=== PATIENT | male | born 1975 | race Caucasian/White ===

== ENCOUNTER 2020-04-25 14:49 | Inpatient (IN) | payer OTHER, SELFPAY ==
[~2020-04-25 14:49] MED LIST: Iopamidol 370 76% 100 ML VIAL ONE; Iopamidol-370 76% 500 ML 1 ML ONE
[2020-04-25] MEDS ORDERED: Fentanyl 100 MCG/2 ML VIAL ONE ×2 (15:15→15:24)
[2020-04-25] MEDS ORDERED: fentaNYL Citrate/PF 2,000 MCG in Sodium Chloride 0.9% 60 ML IV SCH ×2 (15:15→20:00)
--- NOTE | 2020-04-25 15:20 | RAD ---
XR Chest 1 View Portable HISTORY: Respiratory failure COMPARISON: None FINDINGS: The heart size is normal. There is an endotracheal tube with tip about 3 cm above the level of the c adriane. A nasogastric tube can be traced into the stomach with tip excluded from the film. The lungs are well expanded without focal areas of consolidation, pneumothorax or pleural effusions.
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
[2020-04-25 15:24] LABS: #Basophils 0.2 thou/uL (0.0-0.2); #Eosinphils 0.1 thou/uL (0.0-0.7); #Lymphocytes 4.4 thou/uL (1.20-3.40); #Monocytes 0.7 thou/uL (0.11-0.59); #Neutrophils 9.9 thou/uL (1.40-6.50); %Eosinophils 0.6 % (0.0-10.0); %Lymphocytes 28.7 % (21.0-51.0); %Monocytes 4.6 % (0.0-10.0); Hemoglobin 17.4 g/dL (14.0-18.0); Mean Corpuscular HGB CONC 34.1 g/dL (32.0-36.0); Mean Corpuscular Hemoglobin 31.8 pg (27.0-31.0); Mean Corpuscular Volume 93.3 fL (78.0-98.0); Mean Platelet Volume 7.8 fL (7.4-10.4); Platelet Count 357 thou/uL (130-400); RBC Distribution Width 11.8 % (11.5-14.5); Red Blood Cell (RBC) Count 5.48 mill/uL (4.70-6.10); White Blood Cell (WBC) Count 15.2 thou/uL (4.8-10.8)
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
[2020-04-25 15:42] LABS: PTT 26.1 sec (22.9-36.1); Prothrombin Time 12.9 sec (12.0-14.7)
[2020-04-25 15:42] LABS: Analyzer IN Cardio ER; Base Excess (BEa) -6.3 mEq/L (-2.0 to +3.0); CO2 Tension 47.7 mmHg (35.0-45.0); Calcium, Ionized (arterial) 1.16 mmol/L (1.12-1.30); Carboxyhemoglobin (COHb) 2.3 gm% (0.0-3.0); Hemoglobin (Hb) 16.6 g/dL (14.0-18.0); O2 Tension (PaO2), arterial 135.8 mmHg (80.0-100.0); Potassium - ABG Lab 2.81 mmol/L (3.70-5.30); pH, Arterial 7.26 (7.35-7.45)
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
[2020-04-25] MEDS ORDERED: Midazolam HCl 5 mg/ml Vial ONE ×2 (15:51→16:16)
[2020-04-25 15:52] LABS: ALV-art Gradient 232.375 mmHg (0-20); Puncture Site RRA
[2020-04-25 15:52] LABS: ALT (SGPT) 161 U/L (8-55); AST (SGOT) 96 U/L (5-34); Alkaline Phosphatase 76 U/L (40-110); Anion Gap 22 mmol/L (10-20); BUN (Urea Nitrogen) 8 mg/dL (8.9-20.6); Bilirubin, Total 0.6 mg/dL (0.2-1.2); Calc. Creatinine Clearance 0 mL/min (70-130); Calcium 8.9 mg/dL (7.8-10.44); Carbon Dioxide 18 mmol/L (22-29); Chloride 101 mmol/L (98-107); Globulin 2.8 g/dL (2.4-3.5); Glucose 210 mg/dL (70-105); Lipase 35 U/L (8-78); Protein, Total 6.8 g/dL (6.0-8.3); Sodium 138 mmol/L (136-145)
[2020-04-25 15:53] LABS: Bacteria/HPF None Seen HPF (None Seen); Bilirubin Negative (Negative); Blood, Urine Negative (Negative); Clarity Clear (Clear); Glucose, Urine (Dipstick) 70 mg/dL (Negative); Ketone, Urine Negative (Negative); Leukocyte Negative Leu/uL (Negative); Nitrite Negative (Negative); Protein, Urine (Dipstick) 200 mg/dL (Neg-Trace); Specific Gravity, Urine 1.015 (1.002-1.036); Squamous Epithelial None Seen HPF (0-3); Urobilinogen Normal mg/dL (Less than 2); pH, Urine 6.5 (5.0-9.0)
[2020-04-25 15:57] LABS: Sperm/HPF 2+ HPF (None Seen)
[2020-04-25 16:03] LABS: Potassium 2.7 mmol/L (3.5-5.1)
[2020-04-25] MEDS ORDERED: Potassium Chloride 20 MEQ/100 ML PREMIX BAG ONE ×2 (16:08→17:23)
[2020-04-25 16:12] LABS: Amphetamine Not Detected (NotDetected); Barbiturates Screen Not Detected (NotDetected); Benzodiazepine Screen Not Detected (NotDetected); Cocaine Metabolite Screen Not Detected (NotDetected); Medtox Control Line Valid? VALID (VALID); Medtox Reader # READER 4; Methadone Not Detected (NotDetected); Methamphetamine Not Detected (NotDetected); Opiate Screen Not Detected (NotDetected); Oxycodone Screen Not Detected (NotDetected); Phencyclidine (PCP) Not Detected (NotDetected); THC/Cannabinoid Screen Not Detected (NotDetected); Tricyclic Screen Not Detected (NotDetected)
[2020-04-25 16:12] LABS: CKMB 2.5 ng/mL (0-6.6)
[2020-04-25 16:20] LABS: Acetaminophen Less than 6.0 mcg/mL (10.0-30.0); Alcohol Less than 10 mg/dL (Less than 10); Salicylate Less than 8.0 mg/dL (15.0-30.0)
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
[2020-04-25 16:33] LABS: Lactic Acid 7.6 mmol/L (0.5-2.2)
[2020-04-25] MEDS ORDERED: Pot Chloride/Pot Bicarb/Cit Ac 25 mEq Effervescent Tablet ONE ×2 (16:33)
[2020-04-25 16:50] LABS: SARS-CoV-2 NAA Rapid Test Not Detected (NotDetected)
[2020-04-25] MEDS ORDERED: Heparin 10,000 UNITS/ 10 ML VIAL ONE (16:50)
[2020-04-25] MEDS ORDERED: Propofol 1,000 MG/100 ML VIAL IV ONE ×2 (16:54→18:50)
[2020-04-25] MEDS ORDERED: DOPamine 400 MG/D5W 250 ML 250 ML ONE (17:32)
[2020-04-25 18:08] VITALS: BMI 32.1
[2020-04-25] MEDS ORDERED: DOPamine 400 MG/D5W 250 ML 250 ML IVPB SCH (19:00)
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
[2020-04-25 19:16] LABS: Actual Bicarbonate (HCO3a) 19.7 mEq/L (22-28); CO2 Tension 43.6 mmHg (35.0-45.0); Calcium, Ionized (arterial) 1.05 mmol/L (1.12-1.30); Carboxyhemoglobin (COHb) 1.1 gm% (0.0-3.0); O2 Tension (PaO2), arterial 77.7 mmHg (80.0-100.0); pH, Arterial 7.27 (7.35-7.45)
[2020-04-25 19:30] LABS: Troponin I 0.524 ng/mL (< 0.028)
[2020-04-25] MEDS ORDERED: Nitroglycerin 0.4 MG TAB (25 Tab Bottle) SL PRN ×2 (19:38→22:30)
[2020-04-25] MEDS ORDERED: Ventilator Sedation Protocol 1 EACH FS SCH (19:45)
[2020-04-25] MEDS ORDERED: Acetaminophen 650 MG Suppository PR PRN (19:58)
[2020-04-25] MEDS ORDERED: PHENTOLAMINE MESYLATE SC SCH (20:00)
[2020-04-25] MEDS ORDERED: PRE FILLED SC SCH (20:00)
[2020-04-25] MEDS ORDERED: DISCONTINUE PREVIOUS NARCOTIC PAIN MEDICATIONS AND BENZODIAZEPINES FS SCH (20:00)
[2020-04-25] MEDS ORDERED: Morphine 2 MG/ML VIAL SLOW IVP PRN (20:00)
[2020-04-25] MEDS ORDERED: Propofol BOLUS 1,000 MG/100 ML VIAL IV PRN (20:00)
[2020-04-25] MEDS ORDERED: Lorazepam 2 MG/ML VIAL SLOW IVP PRN (20:00)
[2020-04-25] MEDS ORDERED: Phentolamine Mesylate 5 MG VIAL SC SCH (20:00)
[2020-04-25] MEDS ORDERED: Fentanyl BOLUS 250 ML IVPB PRN (20:00)
[2020-04-25] MEDS ORDERED: Propofol 1,000 MG/100 ML VIAL IV PRN (20:00)
[2020-04-25 20:05] LABS: Puncture Site LBA
--- NOTE | 2020-04-25 20:20 | PDOC.BPN ---
- Brief Progress Note [id number] dictated
[2020-04-25] MEDS ORDERED: Sodium Chloride 0.9% 500 ML IV SCH (20:40)
[2020-04-25] MEDS ORDERED: Ondansetron PF 4 MG/2 ML Vial IVP PRN (20:40)
[2020-04-25] MEDS: Famotidine/PF 20 mg/2ml Vial SLOW IVP SCH (20:45)
[2020-04-25 20:52] LABS: Anion Gap 16 mmol/L (10-20); BUN (Urea Nitrogen) 8 mg/dL (8.9-20.6); Calc. Creatinine Clearance 146 mL/min (70-130); Calcium 7.1 mg/dL (7.8-10.44); Carbon Dioxide 19 mmol/L (22-29); Chloride 110 mmol/L (98-107); Glucose 128 mg/dL (70-105); Magnesium 1.9 mg/dL (1.6-2.6); Potassium 3.9 mmol/L (3.5-5.1); Sodium 141 mmol/L (136-145)
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
[2020-04-25 20:58] LABS: Troponin I 0.974 ng/mL (< 0.028)
[2020-04-25] MEDS ORDERED: Metoprolol Tartrate 25 MG TAB PO SCH (21:00)
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
[2020-04-25] MEDS: Atorvastatin Calcium 40 MG TAB PO SCH (21:42)
[2020-04-25 23:22] LABS: Hemoglobin 15.5 g/dL (14.0-18.0); Platelet Count 227 thou/uL (130-400)
[2020-04-25] MEDS: Heparin 10,000 UNITS/ 10 ML VIAL SLOW IVP SCH (23:37)
[2020-04-25] MEDS: Heparin 25,000 units/D5W 500 ML IV SCH (23:38)
[2020-04-26 03:48] LABS: ALT (SGPT) 130 U/L (8-55); AST (SGOT) 175 U/L (5-34); Albumin 3.4 g/dL (3.5-5.0); Alkaline Phosphatase 61 U/L (40-110); Anion Gap 15 mmol/L (10-20); BUN (Urea Nitrogen) 6 mg/dL (8.9-20.6); Bilirubin, Total 0.8 mg/dL (0.2-1.2); Calc. Creatinine Clearance 170 mL/min (70-130); Calcium 7.3 mg/dL (7.8-10.44); Carbon Dioxide 17 mmol/L (22-29); Cardiac Risk 3.8 (Less than 4.5); Chloride 108 mmol/L (98-107); Cholesterol 119 mg/dl (< 200 Desired); Globulin 2.3 g/dL (2.4-3.5); Glucose 135 mg/dL (70-105); HDL Cholesterol 31 mg/dL (>60 Neg Risk); LDL Cholesterol, Calculated 77 mg/dL; Potassium 4.1 mmol/L (3.5-5.1); Protein, Total 5.7 g/dL (6.0-8.3); Sodium 136 mmol/L (136-145); Triglycerides 54 mg/dL (Less than 150)
[2020-04-26 03:50] LABS: Band 2 % (5-11); Hemoglobin 15.1 g/dL (14.0-18.0); Lymphocytes 9 % (21-51); MDiff Complete? YES; Mean Corpuscular HGB CONC 34.5 g/dL (32.0-36.0); Mean Corpuscular Hemoglobin 31.9 pg (27.0-31.0); Mean Corpuscular Volume 92.5 fL (78.0-98.0); Mean Platelet Volume 7.6 fL (7.4-10.4); Monocytes 2 % (0-10); Neutrophil 86 % (42-75); Platelet Count 270 thou/uL (130-400); Platelet Morphology Comment Appears Adequate; RBC Distribution Width 11.5 % (11.5-14.5); Reactive Lymphocytes 1 % (0-10); Red Blood Cell (RBC) Count 4.72 mill/uL (4.70-6.10); White Blood Cell (WBC) Count 16.9 thou/uL (4.8-10.8)
[2020-04-26] MEDS: Acetaminophen/Codeine 30-300mg Tablet PO PRN ×4 (04:17→20:54)
[2020-04-26] MEDS: Heparin 10,000 UNITS/ 10 ML VIAL SLOW IVP SCH ×2 (06:25→22:30)
[2020-04-26] MEDS: Aspirin 325 mg Enteric Coated Tablet PO SCH (07:40)
[2020-04-26] MEDS: Famotidine/PF 20 mg/2ml Vial SLOW IVP SCH ×2 (07:40→20:54)
[2020-04-26] MEDS ORDERED: FLU VACC QS2020-21(6MOS UP)/PF 60 MCG/0.5 ML SYRINGE IM ONE (09:00)
[2020-04-26] MEDS ORDERED: Prevnar 13-Val Conj/PF 0.5 ML SYRINGE IM ONE (09:00)
--- NOTE | 2020-04-26 09:12 | PDOC.CPN ---
- Subjective Date: 04/26/20 Time: 09:10 - Review of Systems General: denies: fever/chills, weight/appetite/sleep changes, night sweats, fatigue Respiratory: denies: cough, congestion, shortness of breath, exercise intolerance Cardiovascular: reports: chest pain Gastrointestinal: denies: nausea, vomiting, diarrhea, constipation, abd pain, GI bleeding Musculoskeletal: reports: pain (post CPR) Neurological: denies: numbness, syncope, seizure, weakness - Objective Allergies/Adverse Reactions: Allergies Allergy/AdvReac Type Severity Reaction Status Date / Time shellfish derived Allergy Verified 08/01/19 12:26 Visit Medications: Current Medications Acetaminophen (Acetaminophen 650 Mg Suppository) 650 mg MT Q6H PRN PRN Reason: Fever > 101 or Mild Pain Acetaminophen/Codeine Phosphate (Acetaminophen/Codeine 30-300mg Tablet) 1 tab PO Q4H PRN PRN Reason: Mild Pain (1-3) Last Admin: 04/26/20 04:17 Dose: 1 tab Documented by: Acetaminophen/Codeine Phosphate (Acetaminophen/Codeine 30-300mg Tablet) 2 tab PO Q4H PRN PRN Reason: Moderate Pain (4-6) Last Admin: 04/26/20 07:41 Dose: 2 tab Documented by: Aspirin (Aspirin 325 Mg Enteric Coated Tablet) 325 mg PO DAILY DARVIN Last Admin: 04/26/20 07:40 Dose: 325 mg Documented by: Atorvastatin Calcium (Atorvastatin Calcium 40 Mg Tab) 40 mg PO HS DARVIN Last Admin: 04/25/20 21:42 Dose: Not Given Documented by: Famotidine (Famotidine/Pf 20 Mg/2ml Vial) 20 mg SLOW IVP Q12HR DARVIN Last Admin: 04/26/20 07:40 Dose: 20 mg Documented by: Heparin Sodium (Porcine) (Heparin 10,000 Units/ 10 Ml Vial) 0 units SLOW IVP W ILLCALL DARVIN Last Admin: 04/26/20 06:25 Dose: 3,144 unit Documented by: Dopamine HCl/Dextrose (Dopamine 400 Mg/D5w 250 Ml) 250 mls @ 0 mls/hr IVPB INF DARVIN; Protocol Last Admin: 04/26/20 03:03 Dose: 250 mls Documented by: Dexmedetomidine HCl 400 mcg/ (Sodium Chloride) 100 mls @ 0 mls/hr IVPB INF DARVIN; Protocol Last Admin: 04/26/20 03:43 Dose: 100 mls Documented by: Fentanyl Citrate 2,000 mcg/ (Sodium Chloride) 100 mls @ 0 mls/hr IV INF DARVIN; Protocol Stop: 05/25/20 20:00 Fentanyl Citrate (Fentanyl Bolus) 250 mls @ 0 mls/hr IVPB PRN PRN PRN Reason: Breakthrough pain/agitation Stop: 05/25/20 20:00 Heparin Sodium/Dextrose (Heparin 25,000 Units/D5w) 500 mls @ 0 mls/hr IV INF DARVIN; Protocol Last Admin: 04/25/20 23:38 Dose: 500 mls Documented by: Lorazepam (Lorazepam 2 Mg/Ml Vial) 2 mg SLOW IVP Q1H PRN PRN Reason: Breakthrough agitation Stop: 05/25/20 20:00 Morphine Sulfate (Morphine 2 Mg/Ml Vial) 2 mg SLOW IVP Q1H PRN PRN Reason: Breakthrough Pain/Agitation Stop: 05/25/20 20:00 Nitroglycerin (Nitroglycerin 0.4 Mg Tab (25 Tab Bottle)) 0.4 mg SL Q5MIN PRN PRN Reason: Chest Pain Discontinue Previous Narcotic Pain Medications And Benzodiazepines 1 each FS .ONE DARVIN Stop: 05/25/20 20:00 Ondansetron HCl (Ondansetron Pf 4 Mg/2 Ml Vial) 4 mg IVP Q6H PRN PRN Reason: Nausea/Vomiting Last Admin: 04/26/20 04:17 Dose: 4 mg Documented by: Propofol (Propofol 1,000 Mg/100 Ml Vial) 1,000 mg IV INF PRN; Protocol PRN Reason: TO ACHIEVE GOAL RASS Stop: 05/25/20 20:00 Propofol (Propofol Bolus 1,000 Mg/100 Ml Vial) 20 mg IV Q5MIN PRN PRN Reason: BREAKTHROUGH AGITATION Stop: 05/25/20 20:00 Sodium Chloride (Sodium Chloride 0.9% 250 Ml Bag) 200 ml IVPB ONE PRN PRN Reason: BOLUS IF SBP <90 Stop: 05/05/20 22:31 Sodium Chloride (Flush - Normal Saline 10 Ml Syringe) 10 ml IVF PRN PRN PRN Reason: Saline Flush Sodium Chloride (Flush - Normal Saline 10 Ml Syringe) 10 ml IVF Q12HR DARVIN Vital Signs & Weight: Vital Signs Temp 04/26/20 08:00 98.4 F 04/26/20 04:00 98.3 F 04/26/20 00:00 98.9 F Weight 230 lb - Quality Measures Condition: Myocardial Infarction CV meds: Beta Karla: No (will initiate when BP tolerates), JOY/ARB: No ("), Statin: Yes, ASA: Yes - Physical Exam General: no apparent distress HEENT: mucus membranes moist Neck: supple neck, no bruit Cardiac: regular rate and rhythm, no murmur Lungs: clear to auscultation Neuro: grossly intact Abdomen: active bowel sounds Extremities: no cyanosis, no clubbing, no edema Skin: clear Musculoskeletal: normal range of motion - Labs Result Diagrams: 04/26/20 03:14 04/26/20 03:14 Troponin/CKMB CK-MB (CK-2) 2.5 ng/mL (0-6.6) 04/25/20 14:52 Troponin I 0.974 ng/mL (< 0.028) H* 04/25/20 20:25 - Telemetry Sinus rhythms and dysrhythmias: sinus rhythm - Assessment/Plan Assessment/Plan: 1. s/p posterior STEMI with V-fib. arrest. Diffuse distal disease. Small vessels. Occluded OM 1, Occluded non-dominant RCA proximally after the take off of an RV branch. No intervention possible, vessels too small and diffuse disease. 2. CMY, likely ischemic. EF 25-30%. Check echo in 2-3 days. The decreased EF is out of proportion to the cardiac enzyme elevation. Consult EP. 3. HTN: has been on HCTZ. BP is on low side, still on dopamine.Titrate to off. If not able to titrate then will place central line. 4. Hypokalemia: resolved. 5. Tobacco abuse. Will need counseling. When BP tolerates, start betablockers, entresto or JOY-I. Change to lovenox. Suggest dual anti-platelet therapy, Aspirin and Plavix or Brilinta. If the EF is still decreased by echo then add spiranolactone.
[2020-04-26] MEDS ORDERED: Sodium Chloride 0.9% 500 ML IV SCH (11:00)
--- NOTE | 2020-04-26 11:41 | PRG ---
DATE OF SERVICE: 04/26/2020 SUBJECTIVE: Mr. Oliveira still little unclear of the events occurring yesterday. He is having chest discomfort more internally rather than musculoskeletal. When I have questioned him about chest pain in the days preceding admission, he is fairly vague. He has not had any further arrhythmia. He continues to have moderately low blood pressure and we will see how he is able to tolerate the addition of Coreg and Entresto. He is thirsty and I suspect he is still volume depleted. He is also having some evidence of nicotine withdrawal. PHYSICAL EXAMINATION: VITAL SIGNS: Blood pressure 93/52, heart rate 62, respiratory rate 14, saturation 94%. GENERAL: He is awake, alert, not really in significant distress. He does have occasional complaints of pain with cough, but not with palpation. NECK: He has no JVD. LUNGS: Scattered rhonchi, but no wheezing. HEART: Regular rate and rhythm. I do not hear a murmur nor gallop. ABDOMEN: Soft. There is no organomegaly. EXTREMITIES: He has no edema. LABORATORY DATA: White count 16,900, hemoglobin 15.1, platelet count 270,000. PTT is elevated consistent with ongoing heparin therapy. Electrolytes today include sodium 136, potassium 4.1, chloride 108, CO2 of 17, BUN 6, creatinine 0.8. Liver tests have gone up slightly and today show AST 175 and ALT of 130. IMPRESSION: 1. Status post ventricular fibrillation event with resuscitation. 2. Reduced ejection fraction of approximately 30% in combination with diffuse distal coronary artery disease not amenable to stenting. 3. History of tobacco abuse. PLAN: I am going to start Nicoderm patch. He can probably have his Beltran removed and advancement of diet if okay with Cardiology. I have requested another 500 mL bolus and presume that he is probably a little dehydrated. I am not sure that he is going to be able to tolerate the beta-sam and Entresto as anticipated. He is being converted from IV heparin to Lovenox and ultimately to antiplatelet therapy. The patient is certainly aware of the need for aggressive lifestyle modification and long-term medication followup. Critical care, 30 minutes. Job ID: [id number]
[2020-04-26] MEDS: Nicotine 14 MG PATCH TD SCH (11:53)
[2020-04-26 11:58] LABS: Troponin I 64.223 ng/mL (< 0.028)
[2020-04-26 16:14] LABS: Troponin I 104.795 ng/mL (< 0.028)
[2020-04-26] MEDS: Carvedilol 3.125 MG TAB PO SCH (17:39)
[2020-04-26] MEDS: Atorvastatin Calcium 40 MG TAB PO SCH (20:54)
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
[2020-04-26 22:05] LABS: Troponin I 126.229 ng/mL (< 0.028)
[2020-04-26] MEDS: Heparin 25,000 units/D5W 500 ML IV SCH (22:14)
[2020-04-27] MEDS: Acetaminophen/Codeine 30-300mg Tablet PO PRN ×6 (00:33→20:08)
[2020-04-27 05:29] LABS: ALT (SGPT) 123 U/L (8-55); AST (SGOT) 213 U/L (5-34); Albumin 3.2 g/dL (3.5-5.0); Alkaline Phosphatase 52 U/L (40-110); Anion Gap 13 mmol/L (10-20); BUN (Urea Nitrogen) 4 mg/dL (8.9-20.6); Bilirubin, Total 0.8 mg/dL (0.2-1.2); Calc. Creatinine Clearance 172 mL/min (70-130); Calcium 7.6 mg/dL (7.8-10.44); Carbon Dioxide 25 mmol/L (22-29); Chloride 106 mmol/L (98-107); Globulin 2.1 g/dL (2.4-3.5); Glucose 105 mg/dL (70-105); Potassium 3.1 mmol/L (3.5-5.1); Protein, Total 5.3 g/dL (6.0-8.3); Sodium 141 mmol/L (136-145)
[2020-04-27 05:34] LABS: Band 1 % (5-11); Eosinophils 1 % (0-10); Hemoglobin 13.6 g/dL (14.0-18.0); Lymphocytes 7 % (21-51); MDiff Complete? YES; Mean Corpuscular HGB CONC 34.2 g/dL (32.0-36.0); Mean Corpuscular Hemoglobin 32.1 pg (27.0-31.0); Mean Corpuscular Volume 93.8 fL (78.0-98.0); Mean Platelet Volume 8.1 fL (7.4-10.4); Monocytes 10 % (0-10); Neutrophil 81 % (42-75); Platelet Count 161 thou/uL (130-400); Platelet Morphology Comment Appears Adequate; RBC Distribution Width 11.6 % (11.5-14.5); RBC Morphology Normal; Red Blood Cell (RBC) Count 4.25 mill/uL (4.70-6.10); White Blood Cell (WBC) Count 14.1 thou/uL (4.8-10.8)
[2020-04-27 05:54] LABS: Critical Call Chem Troponin I RESULT DECREASING; Troponin I 90.793 ng/mL (< 0.028)
[2020-04-27] MEDS: Carvedilol 3.125 MG TAB PO SCH ×2 (08:02→16:11)
[2020-04-27] MEDS: Aspirin 325 mg Enteric Coated Tablet PO SCH (08:02)
[2020-04-27] MEDS: Famotidine/PF 20 mg/2ml Vial SLOW IVP SCH (08:02)
[2020-04-27] MEDS: Potassium Chloride 20 MEQ TAB PO SCH ×2 (09:13→12:40)
[2020-04-27] MEDS: Famotidine 20 MG TAB PO SCH ×2 (09:14→20:51)
--- NOTE | 2020-04-27 09:28 | PRG ---
DATE OF SERVICE: 04/27/2020 SUBJECTIVE: This morning, the patient is awake, alert, responsive, less short of breath. OBJECTIVE: VITAL SIGNS: Temperature 98, pulse 75, blood pressure 105/59, respiratory rate 18. CHEST: No wheezing. No crackles. CARDIAC: Normal S1 and S2. ABDOMEN: No masses. LABORATORY DATA: White count 14,000. ASSESSMENT: Status post cardiopulmonary arrest, VFib, cardiomyopathy, EF 30%. PLAN: In the ICU, we are awaiting input from Cardiology for ongoing care. Pulmonary is going to follow in the ICU. Job ID: [id number]
[2020-04-27] MEDS: Nicotine 14 MG PATCH TD SCH (12:21)
[2020-04-27] MEDS: Heparin 10,000 UNITS/ 10 ML VIAL SLOW IVP SCH (12:39)
[2020-04-27] MEDS: Heparin 25,000 units/D5W 500 ML IV SCH (14:14)
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
[2020-04-27] MEDS: Atorvastatin Calcium 40 MG TAB PO SCH (20:54)
[2020-04-27] MEDS: Enoxaparin Sodium 100 MG/ML SYRINGE SC SCH (20:54)
[2020-04-28] MEDS: Acetaminophen/Codeine 30-300mg Tablet PO PRN ×6 (00:17→21:32)
[2020-04-28 04:14] LABS: Band 5 % (5-11); Hemoglobin 13.7 g/dL (14.0-18.0); Lymphocytes 5 % (21-51); MDiff Complete? YES; Mean Corpuscular HGB CONC 34.8 g/dL (32.0-36.0); Mean Corpuscular Hemoglobin 32.3 pg (27.0-31.0); Mean Corpuscular Volume 92.7 fL (78.0-98.0); Mean Platelet Volume 8.8 fL (7.4-10.4); Monocytes 9 % (0-10); Neutrophil 80 % (42-75); Platelet Count 186 thou/uL (130-400); Platelet Morphology Comment Appears Adequate; RBC Distribution Width 11.5 % (11.5-14.5); Reactive Lymphocytes 1 % (0-10); Red Blood Cell (RBC) Count 4.23 mill/uL (4.70-6.10); White Blood Cell (WBC) Count 15.9 thou/uL (4.8-10.8)
[2020-04-28 04:22] LABS: ALT (SGPT) 89 U/L (8-55); AST (SGOT) 96 U/L (5-34); Albumin 3.2 g/dL (3.5-5.0); Alkaline Phosphatase 55 U/L (40-110); Anion Gap 12 mmol/L (10-20); BUN (Urea Nitrogen) 5 mg/dL (8.9-20.6); Bilirubin, Total 0.9 mg/dL (0.2-1.2); Calc. Creatinine Clearance 183 mL/min (70-130); Carbon Dioxide 26 mmol/L (22-29); Chloride 104 mmol/L (98-107); Globulin 2.4 g/dL (2.4-3.5); Glucose 94 mg/dL (70-105); Potassium 3.2 mmol/L (3.5-5.1); Protein, Total 5.6 g/dL (6.0-8.3); Sodium 139 mmol/L (136-145)
[2020-04-28] MEDS: Famotidine 20 MG TAB PO SCH ×2 (07:41→20:48)
[2020-04-28] MEDS: Aspirin 325 mg Enteric Coated Tablet PO SCH (07:41)
[2020-04-28] MEDS: Clopidogrel Bisulfate 75 MG TAB PO SCH (07:41)
[2020-04-28] MEDS: Carvedilol 3.125 MG TAB PO SCH ×2 (07:41→15:42)
[2020-04-28] MEDS: Enoxaparin Sodium 100 MG/ML SYRINGE SC SCH ×2 (07:41→20:47)
[2020-04-28] MEDS: Potassium Chloride 20 MEQ TAB PO SCH ×2 (07:44→11:51)
--- NOTE | 2020-04-28 09:12 | PRG ---
DATE OF SERVICE: 04/28/2020 SUBJECTIVE: Ernesto Oliveira remains in the ICU, awake, chest pain persists, but no shortness of breath, coughing, or wheezing. OBJECTIVE: VITAL SIGNS: Temperature is normal. Saturations are 96% on room air, pulse 72, blood pressure 110/60. CHEST: No wheezing. No crackles. CARDIAC: Normal S1 and S2. No gallops. ABDOMEN: No masses. LABORATORY DATA: Lytes are normal. White count 15,000. IMPRESSION: 1. Status post ventricular tachycardia, ventricular fibrillation, respiratory failure. 2. Cardiomyopathy. PLAN: Disposition as per Cardiology. Pulmonary is going to follow while in the ICU. He is to refrain from smoking. Job ID: [id number]
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
[2020-04-28] MEDS: Nicotine 14 MG PATCH TD SCH (11:21)
--- NOTE | 2020-04-28 16:37 | PDOC.EP ---
- Subjective Date: 04/28/20 Time: 08:00 Interval History: follow up post VF arrest. Alert and awake. + chest discomfort from prior CPR efforts - Review of Systems Constitutional: denies: chills, fever, malaise, sweats, weakness, other Respiratory: denies: cough, dry, hemoptysis, pleuritic pain, shortness of breath, SOB with excertion, sputum, wheezing, other Cardiology: denies: chest pain, edema, heart racing, light headedness, paroxysmal noc. dyspnea, orthopnea, palpitations, passing out, pleuritic pain, pressure, swelling, other Gastrointestinal: denies: abdominal pain, constipation, diarrhea, hematochezia, melena, nausea, vomitting, other Musculoskeletal: denies: unstable gait, falls, neck pain, shoulder pain, arm pain, hand pain, leg pain, foot pain, other - Objective Allergies/Adverse Reactions: Allergies Allergy/AdvReac Type Severity Reaction Status Date / Time shellfish derived Allergy Verified 08/01/19 12:26 Current Medications Acetaminophen (Acetaminophen 650 Mg Suppository) 650 mg HI Q6H PRN PRN Reason: Fever > 101 or Mild Pain Acetaminophen/Codeine Phosphate (Acetaminophen/Codeine 30-300mg Tablet) 1 tab PO Q4H PRN PRN Reason: Mild Pain (1-3) Last Admin: 04/26/20 20:54 Dose: 1 tab Documented by: Acetaminophen/Codeine Phosphate (Acetaminophen/Codeine 30-300mg Tablet) 2 tab PO Q4H PRN PRN Reason: Moderate Pain (4-6) Last Admin: 04/28/20 13:21 Dose: 2 tab Documented by: Aspirin (Aspirin 325 Mg Enteric Coated Tablet) 325 mg PO DAILY [facility] Last Admin: 04/28/20 07:41 Dose: 325 mg Documented by: Atorvastatin Calcium (Atorvastatin Calcium 40 Mg Tab) 40 mg PO [facility] Last Admin: 04/27/20 20:54 Dose: 40 mg Documented by: Carvedilol (Carvedilol 3.125 Mg Tab) 3.125 mg PO BID-[facility] Last Admin: 04/28/20 15:42 Dose: 3.125 mg Documented by: Clopidogrel Bisulfate (Clopidogrel Bisulfate 75 Mg Tab) 75 mg PO DAILY [facility] Last Admin: 04/28/20 07:41 Dose: 75 mg Documented by: Enoxaparin Sodium (Enoxaparin Sodium 100 Mg/Ml Syringe) 100 mg SC 0900,2100 [facility] Last Admin: 04/28/20 07:41 Dose: 100 mg Documented by: Famotidine (Famotidine 20 Mg Tab) 20 mg PO BID [facility] Last Admin: 04/28/20 07:41 Dose: 20 mg Documented by: Nicotine (Nicotine 14 Mg Patch) 14 mg TD Q24HR [facility] Last Admin: 04/28/20 11:21 Dose: 14 mg Documented by: Nitroglycerin (Nitroglycerin 0.4 Mg Tab (25 Tab Bottle)) 0.4 mg SL Q5MIN PRN PRN Reason: Chest Pain Discontinue Previous Narcotic Pain Medications And Benzodiazepines 1 each FS .ONE [facility] Stop: 05/25/20 20:00 Ondansetron HCl (Ondansetron Pf 4 Mg/2 Ml Vial) 4 mg IVP Q6H PRN PRN Reason: Nausea/Vomiting Last Admin: 04/26/20 04:17 Dose: 4 mg Documented by: Sacubitril/Valsartan (Sacubitril 24mg/Valsartan 26mg Tab) 0.5 tab PO BID [facility] Last Admin: 04/28/20 07:41 Dose: 0.5 tab Documented by: Sodium Chloride (Sodium Chloride 0.9% 250 Ml Bag) 200 ml IVPB ONE PRN PRN Reason: BOLUS IF SBP <90 Stop: 05/05/20 22:31 Sodium Chloride (Flush - Normal Saline 10 Ml Syringe) 10 ml IVF PRN PRN PRN Reason: Saline Flush Sodium Chloride (Flush - Normal Saline 10 Ml Syringe) 10 ml IVF Q12HR [facility] Last Admin: 04/28/20 07:42 Dose: 10 ml Documented by: Vital Signs & Weight: Vital Signs Temp Pulse Pulse BP BP Pulse Ox 04/28/20 15:00 98.3 F 04/28/20 14:00 98.3 F 04/28/20 13:00 98.3 F 04/28/20 11:42 98.7 F 04/28/20 10:56 98.7 F 04/28/20 10:12 80 75 119/76 137/80 04/28/20 10:00 98.7 F 04/28/20 09:00 98.7 F 04/28/20 07:12 97 Weight 230 lb I/O: I/O 04/27/20 04/28/20 04/29/20 06:59 06:59 06:59 Intake Total 2634.2 4913 1550 Output Total 3400 4125 1900 Balance -765.8 788 -350 - Physical Exam General: alert & oriented x3, appears well, no apparent distress, speech clear, affect appropriate HEENT: mucus membranes moist Neck: supple neck, midline trachea, no JVD/HJR, no masses, no bruit, no lymphadenopathy, no thromegaly Cardiology: regular rate and rhythm, no murmur, regular rate, regular rhythm, PMI nondisplaced Lungs: clear to auscultation, normal breath sounds, normal exam, no wheeze, rales, rhonchi, no wheezes, no rales, no rhonchi Neurology: cranial nerve 2-12 intact, grossly intact, motor function intact, sensory function intact, negative rhomberg, coordination normal, no lateralizing findings Abdomen: unremarkable, active bowel sounds, soft, non-tender, no masses, no pulsations/bruits, no hepatosplenomegaly, HJR negative Extremities: dry, strong pulses, warm - Labs Result Diagrams: 04/28/20 03:19 04/28/20 03:19 - EKG Interpretation EKG Method: Telemetry EKG shows: Sinus rhythm - Assessment/Plan Assessment/Plan: 1. Out of hospital ventricular fibrillation arrest. 2. Posterior ST-elevation myocardial infarction. a. Left heart cath demonstrates diffuse distal disease, small vessels, occluded OM1, and nondominant RCA. b. Reduced LVEF at 25% to 30%. c. troponin over 120. 3. History of hypertension. 4. History of tobacco abuse. SR on monitor with occasional PVCs. Rhythm stable. s/p VF arrest due to ischemia. Diffuse CAD with small vessels, could not be stented and not felt to be ammenable to CABG. with LVEF 35%, I recommend lifevest and GDMT with repeat echo in 40 days. If LVEF remains </= 35%, recommend ICD. Continue betablockers for PVC and cardiomyopathy.
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
--- NOTE | 2020-04-28 20:05 | PDOC.CPN ---
- Subjective Date: 04/28/20 Time: 20:03 - Review of Systems General: denies: fever/chills, weight/appetite/sleep changes, night sweats, fatigue Respiratory: denies: cough, congestion, shortness of breath, exercise intolerance Cardiovascular: denies: chest pain, palpitation, edema, paroxysmal nocturnal dyspnea, orthopnea Gastrointestinal: denies: nausea, vomiting, diarrhea, constipation, abd pain, GI bleeding Musculoskeletal: reports: tenderness Neurological: denies: numbness, syncope, seizure, weakness - Objective Allergies/Adverse Reactions: Allergies Allergy/AdvReac Type Severity Reaction Status Date / Time shellfish derived Allergy Verified 08/01/19 12:26 Visit Medications: Current Medications Acetaminophen (Acetaminophen 650 Mg Suppository) 650 mg [place] Q6H PRN PRN Reason: Fever > 101 or Mild Pain Acetaminophen/Codeine Phosphate (Acetaminophen/Codeine 30-300mg Tablet) 1 tab PO Q4H PRN PRN Reason: Mild Pain (1-3) Last Admin: 04/26/20 20:54 Dose: 1 tab Documented by: Acetaminophen/Codeine Phosphate (Acetaminophen/Codeine 30-300mg Tablet) 2 tab PO Q4H PRN PRN Reason: Moderate Pain (4-6) Last Admin: 04/28/20 18:13 Dose: 2 tab Documented by: Aspirin (Aspirin 325 Mg Enteric Coated Tablet) 325 mg PO DAILY [facility] Last Admin: 04/28/20 07:41 Dose: 325 mg Documented by: Atorvastatin Calcium (Atorvastatin Calcium 40 Mg Tab) 40 mg PO [facility] Last Admin: 04/27/20 20:54 Dose: 40 mg Documented by: Carvedilol (Carvedilol 3.125 Mg Tab) 3.125 mg PO BID-[facility] Last Admin: 04/28/20 15:42 Dose: 3.125 mg Documented by: Clopidogrel Bisulfate (Clopidogrel Bisulfate 75 Mg Tab) 75 mg PO DAILY [facility] Last Admin: 04/28/20 07:41 Dose: 75 mg Documented by: Enoxaparin Sodium (Enoxaparin Sodium 100 Mg/Ml Syringe) 100 mg SC 0900,2100 [facility] Last Admin: 04/28/20 07:41 Dose: 100 mg Documented by: Famotidine (Famotidine 20 Mg Tab) 20 mg PO BID [facility] Last Admin: 04/28/20 07:41 Dose: 20 mg Documented by: Nicotine (Nicotine 14 Mg Patch) 14 mg TD Q24HR [facility] Last Admin: 04/28/20 11:21 Dose: 14 mg Documented by: Nitroglycerin (Nitroglycerin 0.4 Mg Tab (25 Tab Bottle)) 0.4 mg SL Q5MIN PRN PRN Reason: Chest Pain Discontinue Previous Narcotic Pain Medications And Benzodiazepines 1 each FS .ONE [facility] Stop: 05/25/20 20:00 Ondansetron HCl (Ondansetron Pf 4 Mg/2 Ml Vial) 4 mg IVP Q6H PRN PRN Reason: Nausea/Vomiting Last Admin: 04/26/20 04:17 Dose: 4 mg Documented by: Sacubitril/Valsartan (Sacubitril 24mg/Valsartan 26mg Tab) 0.5 tab PO BID [facility] Last Admin: 04/28/20 07:41 Dose: 0.5 tab Documented by: Sodium Chloride (Sodium Chloride 0.9% 250 Ml Bag) 200 ml IVPB ONE PRN PRN Reason: BOLUS IF SBP <90 Stop: 05/05/20 22:31 Sodium Chloride (Flush - Normal Saline 10 Ml Syringe) 10 ml IVF PRN PRN PRN Reason: Saline Flush Sodium Chloride (Flush - Normal Saline 10 Ml Syringe) 10 ml IVF Q12HR [facility] Last Admin: 04/28/20 07:42 Dose: 10 ml Documented by: Vital Signs & Weight: Vital Signs Temp Pulse Pulse BP BP 04/28/20 17:41 98 F 04/28/20 15:00 98.3 F 04/28/20 14:00 98.3 F 04/28/20 13:00 98.3 F 04/28/20 11:42 98.7 F 04/28/20 10:56 98.7 F 04/28/20 10:12 80 75 119/76 137/80 04/28/20 10:00 98.7 F 04/28/20 09:00 98.7 F Weight 230 lb - Quality Measures Condition: Myocardial Infarction CV meds: Beta Karla: Yes (will initiate when BP tolerates), JOY/ARB: Yes ("), Statin: Yes, ASA: Yes, Plavix/Effient/Brilinta: Yes - Physical Exam General: alert & oriented x3 HEENT: mucus membranes moist Neck: supple neck, no JVD/HJR Cardiac: regular rate and rhythm Lungs: clear to auscultation Neuro: grossly intact Abdomen: unremarkable Extremities: no edema Skin: clear Musculoskeletal: normal range of motion - Labs Result Diagrams: 04/28/20 03:19 04/28/20 03:19 Troponin/CKMB CK-MB (CK-2) 2.5 ng/mL (0-6.6) 04/25/20 14:52 Troponin I 90.793 ng/mL (< 0.028) H* 04/27/20 04:50 - Assessment/Plan Assessment/Plan: 1. s/p posterior STEMI with V-fib. arrest. Diffuse distal disease. Small vessels. Occluded OM 1, Occluded non-dominant RCA proximally after the take off of an RV branch. No intervention possible, vessels too small and diffuse disease. 2. CMY, likely ischemic. EF 25-30%. Repeat echo EF 35-40%. Inf-posterior lateral akinesis. EP consult appreciated. Will hold off on Life-vest with the EF 35- 40%. No arryhtmias since admission. 3. HTN: BP is stable on additional meds, tolerating meds. 4. Hypokalemia: replace. 5. Tobacco abuse. Will need counseling. if stable, probably home tomorrow.
[2020-04-28] MEDS: Atorvastatin Calcium 40 MG TAB PO SCH (20:47)
[2020-04-29] MEDS: Acetaminophen/Codeine 30-300mg Tablet PO PRN ×4 (01:40→20:56)
[2020-04-29 04:33] LABS: ALT (SGPT) 59 U/L (8-55); AST (SGOT) 46 U/L (5-34); Albumin 3.1 g/dL (3.5-5.0); Alkaline Phosphatase 54 U/L (40-110); Anion Gap 13 mmol/L (10-20); BUN (Urea Nitrogen) 7 mg/dL (8.9-20.6); Bilirubin, Total 0.5 mg/dL (0.2-1.2); Calc. Creatinine Clearance 181 mL/min (70-130); Carbon Dioxide 22 mmol/L (22-29); Chloride 107 mmol/L (98-107); Globulin 2.7 g/dL (2.4-3.5); Glucose 99 mg/dL (70-105); Potassium 3.7 mmol/L (3.5-5.1); Protein, Total 5.8 g/dL (6.0-8.3); Sodium 138 mmol/L (136-145)
[2020-04-29 04:35] LABS: Band 1 % (5-11); Hemoglobin 13.7 g/dL (14.0-18.0); Lymphocytes 16 % (21-51); MDiff Complete? YES; Mean Corpuscular HGB CONC 33.8 g/dL (32.0-36.0); Mean Corpuscular Hemoglobin 31.7 pg (27.0-31.0); Mean Corpuscular Volume 93.7 fL (78.0-98.0); Mean Platelet Volume 8.7 fL (7.4-10.4); Monocytes 12 % (0-10); Neutrophil 71 % (42-75); Platelet Count 212 thou/uL (130-400); Platelet Morphology Comment Appears Adequate; RBC Distribution Width 11.6 % (11.5-14.5); RBC Morphology Normal; Red Blood Cell (RBC) Count 4.32 mill/uL (4.70-6.10); White Blood Cell (WBC) Count 12.8 thou/uL (4.8-10.8)
--- NOTE | 2020-04-29 09:52 | PDOC.EP ---
- Subjective Date: 04/29/20 Time: 07:30 Interval History: no changes or events overnight. Feels fair overall but sore chest - Review of Systems Constitutional: denies: chills, fever, malaise, sweats, weakness, other Respiratory: denies: cough, dry, hemoptysis, pleuritic pain, shortness of breath, SOB with excertion, sputum, wheezing, other Cardiology: reports: chest pain. denies: edema, heart racing, light headedness, orthopnea, paroxysmal noc. dyspnea, palpitations, passing out, pleuritic pain, pressure, swelling, other Gastrointestinal: denies: abdominal pain, constipation, diarrhea, hematochezia, melena, nausea, vomitting, other Musculoskeletal: denies: unstable gait, falls, neck pain, shoulder pain, arm pain, hand pain, leg pain, foot pain, other - Objective Allergies/Adverse Reactions: Allergies Allergy/AdvReac Type Severity Reaction Status Date / Time shellfish derived Allergy Verified 08/01/19 12:26 Current Medications Acetaminophen (Acetaminophen 650 Mg Suppository) 650 mg [place] Q6H PRN PRN Reason: Fever > 101 or Mild Pain Acetaminophen/Codeine Phosphate (Acetaminophen/Codeine 30-300mg Tablet) 1 tab PO Q4H PRN PRN Reason: Mild Pain (1-3) Last Admin: 04/26/20 20:54 Dose: 1 tab Documented by: Acetaminophen/Codeine Phosphate (Acetaminophen/Codeine 30-300mg Tablet) 2 tab P O Q4H PRN PRN Reason: Moderate Pain (4-6) Last Admin: 04/29/20 01:40 Dose: 2 tab Documented by: Aspirin (Aspirin 81 Mg Enteric Coated Tablet) 81 mg PO DAILY [facility] Atorvastatin Calcium (Atorvastatin Calcium 40 Mg Tab) 40 mg PO [facility] Last Admin: 04/28/20 20:47 Dose: 40 mg Documented by: Carvedilol (Carvedilol 3.125 Mg Tab) 3.125 mg PO BID-[facility] Last Admin: 04/28/20 15:42 Dose: 3.125 mg Documented by: Clopidogrel Bisulfate (Clopidogrel Bisulfate 75 Mg Tab) 75 mg PO DAILY [facility] Last Admin: 04/28/20 07:41 Dose: 75 mg Documented by: Enoxaparin Sodium (Enoxaparin Sodium 100 Mg/Ml Syringe) 100 mg SC 0900,2100 [facility] Last Admin: 04/28/20 20:47 Dose: 100 mg Documented by: Famotidine (Famotidine 20 Mg Tab) 20 mg PO BID [facility] Last Admin: 04/28/20 20:48 Dose: 20 mg Documented by: Nicotine (Nicotine 14 Mg Patch) 14 mg TD Q24HR [facility] Last Admin: 04/28/20 11:21 Dose: 14 mg Documented by: Nitroglycerin (Nitroglycerin 0.4 Mg Tab (25 Tab Bottle)) 0.4 mg SL Q5MIN PRN PRN Reason: Chest Pain Discontinue Previous Narcotic Pain Medications And Benzodiazepines 1 each FS .ONE [facility] Stop: 05/25/20 20:00 Ondansetron HCl (Ondansetron Pf 4 Mg/2 Ml Vial) 4 mg IVP Q6H PRN PRN Reason: Nausea/Vomiting Last Admin: 04/26/20 04:17 Dose: 4 mg Documented by: Sacubitril/Valsartan (Sacubitril 24mg/Valsartan 26mg Tab) 1 tab PO BID [facility] Last Admin: 04/28/20 21:31 Dose: 1 tab Documented by: Sodium Chloride (Sodium Chloride 0.9% 250 Ml Bag) 200 ml IVPB ONE PRN PRN Reason: BOLUS IF SBP <90 Stop: 05/05/20 22:31 Sodium Chloride (Flush - Normal Saline 10 Ml Syringe) 10 ml IVF PRN PRN PRN Reason: Saline Flush Sodium Chloride (Flush - Normal Saline 10 Ml Syringe) 10 ml IVF Q12HR [facility] Last Admin: 04/28/20 20:48 Dose: 10 ml Documented by: Vital Signs & Weight: Vital Signs Temp Pulse Resp BP BP Pulse Ox 04/29/20 08:00 98.7 F 74 16 124/70 93 L 04/29/20 03:33 97.9 F 73 20 119/73 97 Weight 208 lb 6.4 oz I/O: I/O 04/28/20 04/29/20 04/30/20 06:59 06:59 06:59 Intake Total 4913 4890 Output Total 7524 3540 Balance 788 2540 - Physical Exam General: alert & oriented x3, appears well, no apparent distress, speech clear, affect appropriate HEENT: mucus membranes moist, normocephaly Neck: supple neck, midline trachea, no JVD/HJR, no masses, no bruit, no lymphadenopathy, no thromegaly Cardiology: regular rate and rhythm, no murmur, regular rate, regular rhythm, PMI nondisplaced Lungs: clear to auscultation, normal breath sounds, normal exam, no wheeze, rales, rhonchi, no wheezes, no rales, no rhonchi Neurology: cranial nerve 2-12 intact, grossly intact, motor function intact, sensory function intact, negative rhomberg, coordination normal, no lateralizing findings Abdomen: unremarkable, active bowel sounds, soft, non-tender, no masses, no pulsations/bruits, no hepatosplenomegaly, HJR negative - Labs Result Diagrams: 04/29/20 03:27 04/29/20 03:27 - EKG Interpretation EKG Method: Telemetry EKG shows: Sinus rhythm - Assessment/Plan Assessment/Plan: 1. Out of hospital ventricular fibrillation arrest. 2. Posterior ST-elevation myocardial infarction. a. Left heart cath demonstrates diffuse distal disease, small vessels, occluded OM1, and nondominant RCA. b. Reduced LVEF at 25% to 30%. c. troponin over 120. 3. History of hypertension. 4. History of tobacco abuse. 5. NSVT -04/26 within 12 hrs of STEMI -since queited 6. Ischemic cardiomyopathy - 25-30% on admission - repeat echo 35-40% Continue beta blockers on DC recommend life vest given LVEF 35% and STEMI. He is high risk for recurrent events. repeat echo in 40 days. Will see back in clinic in 6 weeks after repeat echo.
[2020-04-29] MEDS: Nicotine 14 MG PATCH TD SCH (10:17)
[2020-04-29] MEDS: Enoxaparin Sodium 100 MG/ML SYRINGE SC SCH ×2 (10:20→20:55)
[2020-04-29] MEDS: Aspirin 81 mg Enteric Coated Tablet PO SCH (10:21)
[2020-04-29] MEDS: Famotidine 20 MG TAB PO SCH ×2 (10:21→20:55)
[2020-04-29] MEDS: Clopidogrel Bisulfate 75 MG TAB PO SCH (10:21)
[2020-04-29] MEDS: Carvedilol 3.125 MG TAB PO SCH ×2 (10:21→17:31)
--- NOTE | 2020-04-29 10:45 | PDOC.CPN ---
- Subjective Date: 04/29/20 Time: 10:42 - Review of Systems General: denies: fever/chills, weight/appetite/sleep changes, night sweats, fatigue Respiratory: denies: cough, congestion, shortness of breath, exercise intolerance Cardiovascular: denies: chest pain, palpitation, edema, paroxysmal nocturnal dyspnea, orthopnea Gastrointestinal: denies: nausea, vomiting, diarrhea, constipation, abd pain, GI bleeding Musculoskeletal: denies: tenderness, stiffness, swelling, arthritis/arthralgias (still sore after CPR) Neurological: denies: numbness, syncope, seizure, weakness - Objective Allergies/Adverse Reactions: Allergies Allergy/AdvReac Type Severity Reaction Status Date / Time shellfish derived Allergy Verified 08/01/19 12:26 Visit Medications: Current Medications Acetaminophen (Acetaminophen 650 Mg Suppository) 650 mg [place] Q6H PRN PRN Reason: Fever > 101 or Mild Pain Acetaminophen/Codeine Phosphate (Acetaminophen/Codeine 30-300mg Tablet) 1 tab PO Q4H PRN PRN Reason: Mild Pain (1-3) Last Admin: 04/26/20 20:54 Dose: 1 tab Documented by: Acetaminophen/Codeine Phosphate (Acetaminophen/Codeine 30-300mg Tablet) 2 tab PO Q4H PRN PRN Reason: Moderate Pain (4-6) Last Admin: 04/29/20 10:13 Dose: 2 tab Documented by: Aspirin (Aspirin 81 Mg Enteric Coated Tablet) 81 mg PO DAILY [facility] Last Admin: 04/29/20 10:21 Dose: 81 mg Documented by: Atorvastatin Calcium (Atorvastatin Calcium 40 Mg Tab) 40 mg PO [facility] Last Admin: 04/28/20 20:47 Dose: 40 mg Documented by: Carvedilol (Carvedilol 3.125 Mg Tab) 3.125 mg PO BID[facility] Last Admin: 04/29/20 10:21 Dose: 3.125 mg Documented by: Clopidogrel Bisulfate (Clopidogrel Bisulfate 75 Mg Tab) 75 mg PO DAILY [facility] Last Admin: 04/29/20 10:21 Dose: 75 mg Documented by: Enoxaparin Sodium (Enoxaparin Sodium 100 Mg/Ml Syringe) 100 mg SC 0900,2100 [facility] Last Admin: 04/29/20 10:20 Dose: 100 mg Documented by: Famotidine (Famotidine 20 Mg Tab) 20 mg PO BID [facility] Last Admin: 04/29/20 10:21 Dose: 20 mg Documented by: Nicotine (Nicotine 14 Mg Patch) 14 mg TD Q24HR [facility] Last Admin: 04/29/20 10:17 Dose: 14 mg Documented by: Nitroglycerin (Nitroglycerin 0.4 Mg Tab (25 Tab Bottle)) 0.4 mg SL Q5MIN PRN PRN Reason: Chest Pain Discontinue Previous Narcotic Pain Medications And Benzodiazepines 1 each FS .ONE [facility] Stop: 05/25/20 20:00 Ondansetron HCl (Ondansetron Pf 4 Mg/2 Ml Vial) 4 mg IVP Q6H PRN PRN Reason: Nausea/Vomiting Last Admin: 04/26/20 04:17 Dose: 4 mg Documented by: Sacubitril/Valsartan (Sacubitril 24mg/Valsartan 26mg Tab) 1 tab PO BID [facility] Last Admin: 04/28/20 21:31 Dose: 1 tab Documented by: Sodium Chloride (Sodium Chloride 0.9% 250 Ml Bag) 200 ml IVPB ONE PRN PRN Reason: BOLUS IF SBP <90 Stop: 05/05/20 22:31 Sodium Chloride (Flush - Normal Saline 10 Ml Syringe) 10 ml IVF PRN PRN PRN Reason: Saline Flush Sodium Chloride (Flush - Normal Saline 10 Ml Syringe) 10 ml IVF Q12HR [facility] Last Admin: 04/29/20 10:21 Dose: 10 ml Documented by: Vital Signs & Weight: Vital Signs Temp Pulse Resp BP BP Pulse Ox 04/29/20 08:00 98.7 F 74 16 124/70 93 L 04/29/20 03:33 97.9 F 73 20 119/73 97 Weight 208 lb 6.4 oz - Quality Measures Condition: Myocardial Infarction CV meds: Beta Karla: Yes (will initiate when BP tolerates), JOY/ARB: Yes ("), Statin: Yes, ASA: Yes, Plavix/Effient/Brilinta: Yes - Physical Exam General: alert & oriented x3 HEENT: mucus membranes moist Neck: no JVD/HJR Cardiac: regular rate and rhythm Lungs: clear to auscultation Neuro: grossly intact Abdomen: unremarkable Extremities: no edema Musculoskeletal: normal range of motion - Labs Result Diagrams: 04/29/20 03:27 04/29/20 03:27 Troponin/CKMB CK-MB (CK-2) 2.5 ng/mL (0-6.6) 04/25/20 14:52 Troponin I 90.793 ng/mL (< 0.028) H* 04/27/20 04:50 - Telemetry Sinus rhythms and dysrhythmias: sinus rhythm - Assessment/Plan Assessment/Plan: 1. s/p posterior STEMI with V-fib. arrest. Diffuse distal disease. Small vessels. Occluded OM 1, Occluded non-dominant RCA proximally after the take off of an RV branch. No intervention possible, vessels too small and diffuse disease. 2. CMY, likely ischemic. EF 25-30%. Repeat echo EF 35-40%. Inf-posterior lateral akinesis. EP consult appreciated. Will hold off on Life-vest with the EF 35- 40%. No arryhtmias since admission. 3. HTN: BP is stable on additional meds, tolerating meds. 4. Hypokalemia: replace. 5. Tobacco abuse. Will need counseling. We check with EP for opinion about possible Life-Vest.
--- NOTE | 2020-04-29 11:54 | PRG ---
DATE OF SERVICE: 04/29/2020 SUBJECTIVE: Ernesto Oliveira still having some vague chest pain, but no shortness of breath. OBJECTIVE: VITAL SIGNS: Temperature 98.0, pulse rate 74, respirations are 16, sats are 93% on room air, and blood pressure 124/70. CHEST: No wheezing. No crackles. CARDIAC: Normal S1 and S2. No gallops. ABDOMEN: No masses. IMPRESSION: Status post respiratory failure, status post [id number] ventricular fibrillation, cardiomyopathy. PLAN: Pulmonary [facility] [place] seen the patient and is scheduled to have a procedure tomorrow. Please call Pulmonary if needed. Job ID: [id number]
[2020-04-29] MEDS: Atorvastatin Calcium 40 MG TAB PO SCH (20:56)
--- NOTE | 2020-04-29 22:47 | PDOC.HOSPP ---
- Subjective Encounter Date: 04/29/20 Encounter Time: 16:15 Subjective: Patient seen and examined for cardiac arrest. Denies any chest pain or shortness of breath. No fever, chills, cough or nausea reported - Objective Vital Signs & Weight: Vital Signs (12 hours) Temp Pulse Pulse Pulse Resp BP BP 04/29/20 15:24 96.5 F L 73 18 04/29/20 12:00 96.8 F L 73 16 04/29/20 10:53 83 77 130/72 129/85 BP Pulse Ox 04/29/20 15:24 128/73 96 04/29/20 12:00 120/70 16 L 04/29/20 10:53 Weight Weight 208 lb 6.4 oz Most Recent Monitor Data Heart Rate from ECG 75 NIBP 129/70 NIBP BP-Mean 89 Respiration from ECG 17 SpO2 95 I&O: 04/28/20 04/29/20 04/30/20 06:59 06:59 06:59 Intake Total 4913 4890 Output Total 4125 2350 Balance 788 8740 Result Diagrams: 04/30/20 04:08 04/30/20 04:08 EKG Reviewed by me: Yes (Sinus rhythm on telemetry) Hospitalist ROS - Review of Systems Cardiovascular: denies: chest pain, palpitations, orthopnea, paroxysmal noc. dyspnea, edema, light headedness, other Gastrointestinal: denies: nausea, vomiting, abdominal pain, diarrhea, constipation, melena, hematochezia, other - Medication Medications: Active Medications Generic Name Dose Route Start Last Admin Trade Name Freq PRN Reason Stop Dose Admin Acetaminophen/Codeine Phosphate 1 tab 04/25/20 22:30 04/26/20 20:54 Acetaminophen/Codeine 30-300mg Tablet PO 1 tab Q4H PRN Administration Mild Pain (1-3) Acetaminophen/Codeine Phosphate 2 tab 04/25/20 22:30 04/29/20 20:56 Acetaminophen/Codeine 30-300mg Tablet PO 2 tab Q4H PRN Administration Moderate Pain (4-6) Aspirin 81 mg 04/29/20 09:00 04/29/20 10:21 Aspirin 81 Mg Enteric Coated Tablet PO 81 mg DAILY DARVIN Administration Atorvastatin Calcium 40 mg 04/25/20 21:00 04/29/20 20:56 Atorvastatin Calcium 40 Mg Tab PO 40 mg HS DARVIN Administration Carvedilol 3.125 mg 04/26/20 17:00 04/29/20 17:31 Carvedilol 3.125 Mg Tab PO 3.125 mg BID-WM DARVIN Administration Clopidogrel Bisulfate 75 mg 04/28/20 09:00 04/29/20 10:21 Clopidogrel Bisulfate 75 Mg Tab PO 75 mg DAILY DARVIN Administration Enoxaparin Sodium 100 mg 04/27/20 21:00 04/29/20 20:55 Enoxaparin Sodium 100 Mg/Ml Syringe SC 100 mg 0900,2100 DARVIN Administration Famotidine 20 mg 04/27/20 09:00 04/29/20 20:55 Famotidine 20 Mg Tab PO 20 mg BID DARVIN Administration Nicotine 14 mg 04/26/20 11:30 04/29/20 10:17 Nicotine 14 Mg Patch TD 14 mg Q24HR DARVIN Administration Ondansetron HCl 4 mg 04/25/20 20:40 04/26/20 04:17 Ondansetron Pf 4 Mg/2 Ml Vial IVP 4 mg Q6H PRN Administration Nausea/Vomiting Sacubitril/Valsartan 1 tab 04/28/20 21:00 04/29/20 20:55 Sacubitril 24mg/Valsartan 26mg Tab PO 1 tab BID DARVIN Administration Sodium Chloride 10 ml 04/26/20 09:00 04/29/20 20:58 Flush - Normal Saline 10 Ml Syringe IVF 10 ml Q12HR DARVIN Administration - Exam General Appearance: NAD Heart: RRR, no gallops Respiratory: no wheezes, no ronchi Gastrointestinal: soft, non-distended Extremities: no cyanosis Neurological: no new deficit Hosp A/P - Plan DVT proph w/SCDs S/p posterior STEMI with V. fib arrest Hypertension Electrolyte abnormality Cardiomyopathy with ejection fraction 25 to 30%repeat echo EF 35 to 40% Tobacco dependence counseled Plan: Continue aspirin with beta-blockers, Plavix and statins. Patient currently on Lovenox 1 mg/kg per cardiology. Awaiting LifeVest. Patient is stable for discharge after LifeVest
[2020-04-29] MEDS ORDERED: Electrolyte Replacement Protocol 1 EACH FS SCH (23:00)
[2020-04-30] MEDS: Acetaminophen/Codeine 30-300mg Tablet PO PRN ×5 (03:55→21:31)
[2020-04-30 05:00] LABS: Eosinophils 3 % (0-10); Lymphocytes 10 % (21-51); MDiff Complete? YES; Mean Corpuscular HGB CONC 34.2 g/dL (32.0-36.0); Mean Corpuscular Hemoglobin 31.9 pg (27.0-31.0); Mean Corpuscular Volume 93.2 fL (78.0-98.0); Monocytes 7 % (0-10); Neutrophil 80 % (42-75); Platelet Count 278 thou/uL (130-400); Platelet Morphology Comment Appears Adequate; RBC Distribution Width 11.6 % (11.5-14.5); Red Blood Cell (RBC) Count 4.71 mill/uL (4.70-6.10); White Blood Cell (WBC) Count 12.8 thou/uL (4.8-10.8)
[2020-04-30 05:01] LABS: Phosphorus 2.1 mg/dL (2.3-4.7)
[2020-04-30 05:02] LABS: ALT (SGPT) 53 U/L (8-55); AST (SGOT) 33 U/L (5-34); Albumin 3.4 g/dL (3.5-5.0); Alkaline Phosphatase 70 U/L (40-110); Anion Gap 14 mmol/L (10-20); BUN (Urea Nitrogen) 6 mg/dL (8.9-20.6); Bilirubin, Total 0.6 mg/dL (0.2-1.2); Calc. Creatinine Clearance 166 mL/min (70-130); Calcium 8.3 mg/dL (7.8-10.44); Carbon Dioxide 22 mmol/L (22-29); Chloride 105 mmol/L (98-107); Glucose 97 mg/dL (70-105); Potassium 3.4 mmol/L (3.5-5.1); Protein, Total 6.4 g/dL (6.0-8.3); Sodium 138 mmol/L (136-145)
[2020-04-30] MEDS ORDERED: Magnesium 2 GM/50 ML 2 GM in Premix Bag 1 BAG IVPB SCH (06:30)
[2020-04-30] MEDS ORDERED: Potassium Chloride 20 MEQ TAB PO SCH (06:45)
[2020-04-30] MEDS: Enoxaparin Sodium 100 MG/ML SYRINGE SC SCH (07:59)
[2020-04-30] MEDS: Aspirin 81 mg Enteric Coated Tablet PO SCH (08:00)
[2020-04-30] MEDS: Clopidogrel Bisulfate 75 MG TAB PO SCH (08:00)
[2020-04-30] MEDS: Famotidine 20 MG TAB PO SCH ×2 (08:00→21:31)
[2020-04-30] MEDS: Carvedilol 3.125 MG TAB PO SCH ×2 (08:00→17:30)
[2020-04-30] MEDS ORDERED: Nicotine 14 MG PATCH TD SCH (13:00)
--- NOTE | 2020-04-30 15:48 | PDOC.CPN ---
- Subjective Date: 04/30/20 Time: 15:36 Interval history: No overnight events, patient doing well, awaiting life-vest placement. Patient denies any chest pain or shortness of breath today. - Review of Systems General: denies: fever/chills, weight/appetite/sleep changes, night sweats, fatigue Respiratory: denies: cough, congestion, shortness of breath, exercise intolerance Cardiovascular: denies: chest pain, palpitation, edema, paroxysmal nocturnal dyspnea, orthopnea Gastrointestinal: denies: nausea, vomiting, diarrhea, constipation, abd pain, GI bleeding Musculoskeletal: denies: pain, tenderness, stiffness, swelling, arthritis/arthralgias Neurological: denies: numbness, syncope, seizure, weakness - Objective Allergies/Adverse Reactions: Allergies Allergy/AdvReac Type Severity Reaction Status Date / Time shellfish derived Allergy Verified 08/01/19 12:26 Visit Medications: Current Medications Acetaminophen (Acetaminophen 650 Mg Suppository) 650 mg [place] Q6H PRN PRN Reason: Fever > 101 or Mild Pain Acetaminophen/Codeine Phosphate (Acetaminophen/Codeine 30-300mg Tablet) 1 tab PO Q4H PRN PRN Reason: Mild Pain (1-3) Last Admin: 04/26/20 20:54 Dose: 1 tab Documented by: Acetaminophen/Codeine Phosphate (Acetaminophen/Codeine 30-300mg Tablet) 2 tab PO Q4H PRN PRN Reason: Moderate Pain (4-6) Last Admin: 04/30/20 12:56 Dose: 2 tab Documented by: Aspirin (Aspirin 81 Mg Enteric Coated Tablet) 81 mg PO DAILY [facility] Last Admin: 04/30/20 08:00 Dose: 81 mg Documented by: Atorvastatin Calcium (Atorvastatin Calcium 40 Mg Tab) 40 mg PO [facility] Last Admin: 04/29/20 20:56 Dose: 40 mg Documented by: Carvedilol (Carvedilol 3.125 Mg Tab) 3.125 mg PO BID-[facility] Last Admin: 04/30/20 08:00 Dose: 3.125 mg Documented by: Clopidogrel Bisulfate (Clopidogrel Bisulfate 75 Mg Tab) 75 mg PO DAILY [facility] Last Admin: 04/30/20 08:00 Dose: 75 mg Documented by: Enoxaparin Sodium (Enoxaparin Sodium 100 Mg/Ml Syringe) 100 mg SC 0900,2100 [facility] Last Admin: 04/30/20 07:59 Dose: 100 mg Documented by: Famotidine (Famotidine 20 Mg Tab) 20 mg PO BID [facility] Last Admin: 04/30/20 08:00 Dose: 20 mg Documented by: Miscellaneous Medication (Electrolyte Replacement Protocol 1 Each) 1 each FS ASDIR [facility] Nicotine (Nicotine 14 Mg Patch) 14 mg TD Q24HR [facility] Last Admin: 04/29/20 10:17 Dose: 14 mg Documented by: Nitroglycerin (Nitroglycerin 0.4 Mg Tab (25 Tab Bottle)) 0.4 mg SL Q5MIN PRN PRN Reason: Chest Pain Ondansetron HCl (Ondansetron Pf 4 Mg/2 Ml Vial) 4 mg IVP Q6H PRN PRN Reason: Nausea/Vomiting Last Admin: 04/26/20 04:17 Dose: 4 mg Documented by: Phosphorus (K-Phos Neutral 250 Mg Tab) 250 mg PO TID-[facility] Sacubitril/Valsartan (Sacubitril 24mg/Valsartan 26mg Tab) 1 tab PO BID [facility] Last Admin: 04/30/20 07:58 Dose: 1 tab Documented by: Sodium Chloride (Sodium Chloride 0.9% 250 Ml Bag) 200 ml IVPB ONE PRN PRN Reason: BOLUS IF SBP <90 Stop: 05/05/20 22:31 Sodium Chloride (Flush - Normal Saline 10 Ml Syringe) 10 ml IVF PRN PRN PRN Reason: Saline Flush Sodium Chloride (Flush - Normal Saline 10 Ml Syringe) 10 ml IVF Q12HR [facility] Last Admin: 04/30/20 08:00 Dose: 10 ml Documented by: Vital Signs & Weight: Vital Signs Temp Pulse Pulse Pulse Resp BP BP 04/30/20 11:28 97.7 F 72 14 04/30/20 11:16 73 69 138/84 142/80 H 04/30/20 07:38 97.5 F L 68 16 04/30/20 04:00 98.1 F 77 16 BP BP Pulse Ox 04/30/20 11:28 138/84 97 04/30/20 11:16 04/30/20 07:38 131/86 95 04/30/20 04:00 121/67 95 Weight 202 lb 12.8 oz - Quality Measures Condition: Myocardial Infarction CV meds: Beta Karla: Yes, JOY/ARB: Yes, Statin: Yes, ASA: Yes, Plavix/Effient/Brilinta: Yes - Physical Exam General: alert & oriented x3, appears well, no apparent distress HEENT: normocephaly Neck: midline trachea, no JVD/HJR, no masses, no bruit Cardiac: regular rate and rhythm, no murmur Lungs: clear to auscultation, normal breath sounds, normal exam, no wheeze, rales, rhonchi Neuro: grossly intact, motor function intact, sensory function intact Abdomen: active bowel sounds, soft, non-tender Extremities: no cyanosis, no clubbing, no edema, 2+ Posterior Tibial, 2+ Dorsalis Pedus Skin: clear Musculoskeletal: normal range of motion, no pain, no fluid collection - Labs Result Diagrams: 04/30/20 04:08 04/30/20 04:08 Troponin/CKMB CK-MB (CK-2) 2.5 ng/mL (0-6.6) 04/25/20 14:52 Troponin I 90.793 ng/mL (< 0.028) H* 04/27/20 04:50 - EKG Interpretation EKG Method: Telemetry (occasional PAC's per telemetry records) EKG: sinus rhythm - Assessment/Plan Assessment/Plan: 1. s/p posterior STEMI with V-fib. arrest. Diffuse distal disease. Small vessels. Occluded OM 1, Occluded non-dominant RCA proximally after the take off of an RV branch. No intervention possible, vessels too small and diffuse disease. patient has been started on Entresto, also on Aspirin, Lipitor, Coreg, & Plavix 2. CMY, likely ischemic. EF 25-30%. Repeat echo EF 35-40%. Inf-posterior lateral akinesis. Life Vest ordered by Dr. Whitlock d/t high risk for re-occurrence of ventricular arrhythmias. Waiting for approval. 3. HTN: BP is stable on additional meds, tolerating meds. 4. Hypokalemia: replace. Waiting for approval for life vest, stable fpr discharge from cardiac standpoint once patient is fitted for lifevest.
--- NOTE | 2020-04-30 16:54 | PDOC.EP ---
- Subjective Date: 04/30/20 Time: 08:00 Interval History: no new events overnight. Pending lifevest placement - Review of Systems Constitutional: denies: chills, fever, malaise, sweats, weakness, other Respiratory: denies: cough, dry, hemoptysis, pleuritic pain, shortness of breath, SOB with excertion, sputum, wheezing, other Cardiology: denies: chest pain, edema, heart racing, light headedness, paroxysm al noc. dyspnea, orthopnea, palpitations, passing out, pleuritic pain, pressure, swelling, other Gastrointestinal: denies: abdominal pain, constipation, diarrhea, hematochezia, melena, nausea, vomitting, other Musculoskeletal: denies: unstable gait, falls, neck pain, shoulder pain, arm pain, hand pain, leg pain, foot pain, other - Objective Allergies/Adverse Reactions: Allergies Allergy/AdvReac Type Severity Reaction Status Date / Time shellfish derived Allergy Verified 08/01/19 12:26 Current Medications Acetaminophen (Acetaminophen 650 Mg Suppository) 650 mg [place] Q6H PRN PRN Reason: Fever > 101 or Mild Pain Acetaminophen/Codeine Phosphate (Acetaminophen/Codeine 30-300mg Tablet) 1 tab PO Q4H PRN PRN Reason: Mild Pain (1-3) Last Admin: 04/26/20 20:54 Dose: 1 tab Documented by: Acetaminophen/Codeine Phosphate (Acetaminophen/Codeine 30-300mg Tablet) 2 tab PO Q4H PRN PRN Reason: Moderate Pain (4-6) Last Admin: 04/30/20 12:56 Dose: 2 tab Documented by: Aspirin (Aspirin 81 Mg Enteric Coated Tablet) 81 mg PO DAILY [facility] Last Admin: 04/30/20 08:00 Dose: 81 mg Documented by: Atorvastatin Calcium (Atorvastatin Calcium 40 Mg Tab) 40 mg PO [facility] Last Admin: 04/29/20 20:56 Dose: 40 mg Documented by: Carvedilol (Carvedilol 3.125 Mg Tab) 3.125 mg PO BID-[facility] Last Admin: 04/30/20 08:00 Dose: 3.125 mg Documented by: Clopidogrel Bisulfate (Clopidogrel Bisulfate 75 Mg Tab) 75 mg PO DAILY [facility] Last Admin: 04/30/20 08:00 Dose: 75 mg Documented by: Enoxaparin Sodium (Enoxaparin Sodium 100 Mg/Ml Syringe) 100 mg SC 0900,2100 [facility] Last Admin: 04/30/20 07:59 Dose: 100 mg Documented by: Famotidine (Famotidine 20 Mg Tab) 20 mg PO BID [facility] Last Admin: 04/30/20 08:00 Dose: 20 mg Documented by: Miscellaneous Medication (Electrolyte Replacement Protocol 1 Each) 1 each FS ASDIR [facility] Nicotine (Nicotine 14 Mg Patch) 14 mg TD Q24HR [facility] Last Admin: 04/29/20 10:17 Dose: 14 mg Documented by: Nitroglycerin (Nitroglycerin 0.4 Mg Tab (25 Tab Bottle)) 0.4 mg SL Q5MIN PRN PRN Reason: Chest Pain Ondansetron HCl (Ondansetron Pf 4 Mg/2 Ml Vial) 4 mg IVP Q6H PRN PRN Reason: Nausea/Vomiting Last Admin: 04/26/20 04:17 Dose: 4 mg Documented by: Phosphorus (K-Phos Neutral 250 Mg Tab) 250 mg PO TID-[facility] Sacubitril/Valsartan (Sacubitril 24mg/Valsartan 26mg Tab) 1 tab PO BID [facility] Last Admin: 04/30/20 07:58 Dose: 1 tab Documented by: Sodium Chloride (Sodium Chloride 0.9% 250 Ml Bag) 200 ml IVPB ONE PRN PRN Reason: BOLUS IF SBP <90 Stop: 05/05/20 22:31 Sodium Chloride (Flush - Normal Saline 10 Ml Syringe) 10 ml IVF PRN PRN PRN Reason: Saline Flush Sodium Chloride (Flush - Normal Saline 10 Ml Syringe) 10 ml IVF Q12HR [facility] Last Admin: 04/30/20 08:00 Dose: 10 ml Documented by: Vital Signs & Weight: Vital Signs Temp Pulse Pulse Pulse Resp BP BP 04/30/20 11:28 97.7 F 72 14 04/30/20 11:16 73 69 138/84 142/80 H 04/30/20 07:38 97.5 F L 68 16 BP BP Pulse Ox 04/30/20 11:28 138/84 97 04/30/20 11:16 04/30/20 07:38 131/86 95 Weight 202 lb 12.8 oz I/O: I/O 04/29/20 04/30/20 05/01/20 06:59 06:59 06:59 Intake Total 4890 3000 Output Total 2350 Balance 2540 3000 - Physical Exam General: alert & oriented x3, appears well, no apparent distress, speech clear, affect appropriate HEENT: mucus membranes moist, normocephaly Neck: supple neck, midline trachea, no JVD/HJR Cardiology: regular rate and rhythm, no murmur Lungs: clear to auscultation, normal breath sounds Neurology: cranial nerve 2-12 intact, grossly intact, coordination normal Abdomen: unremarkable, active bowel sounds, HJR negative Extremities: dry, strong pulses, warm - Labs Result Diagrams: 04/30/20 04:08 04/30/20 04:08 - EKG Interpretation EKG Method: Telemetry EKG shows: Sinus rhythm - Assessment/Plan Assessment/Plan: 1. Out of hospital ventricular fibrillation arrest. 2. Posterior ST-elevation myocardial infarction. a. Left heart cath demonstrates diffuse distal disease, small vessels, occluded OM1, and nondominant RCA. b. Reduced LVEF at 25% to 30%. c. troponin over 120. 3. History of hypertension. 4. History of tobacco abuse. 5. NSVT -04/26 within 12 hrs of STEMI -since quieted 6. Ischemic cardiomyopathy - 25-30% on admission - repeat echo 35-40% Continue beta blockers on DC recommend life vest given LVEF 35% and STEMI. He is high risk for recurrent arrest. LHC showed diffuse disease but no revascularization performed/feasible. repeat echo in 40 days. Will see back in clinic in 6 weeks after repeat echo. Plan EPS if VT seen on lifevest recordings.
[2020-04-30] MEDS: K-Phos Neutral 250 MG TAB PO SCH (17:28)
[2020-04-30] MEDS: Atorvastatin Calcium 40 MG TAB PO SCH (21:31)
--- NOTE | 2020-04-30 23:16 | PDOC.HOSPP ---
- Subjective Encounter Date: 04/30/20 Encounter Time: 14:30 Subjective: Patient seen and examined for myocardial infarction. Denies any chest pain, shortness of breath or palpitations. No fever or chills reported. - Objective Vital Signs & Weight: Vital Signs (12 hours) Temp Pulse Pulse Pulse Resp BP BP 04/30/20 21:24 98.4 F 77 18 04/30/20 16:25 97.5 F L 72 14 04/30/20 11:28 97.7 F 72 14 04/30/20 11:16 73 69 138/84 142/80 H BP BP Pulse Ox 04/30/20 21:24 130/82 97 04/30/20 16:25 131/83 97 04/30/20 11:28 138/84 97 04/30/20 11:16 Weight Weight 202 lb 12.8 oz Most Recent Monitor Data Heart Rate from ECG 75 NIBP 129/70 NIBP BP-Mean 89 Respiration from ECG 17 SpO2 95 I&O: 04/29/20 04/30/20 05/01/20 06:59 06:59 06:59 Intake Total 4890 3000 1480 Output Total 2350 Balance 2540 3000 1480 Result Diagrams: 05/01/20 04:17 05/01/20 04:17 EKG Reviewed by me: Yes (Sinus rhythm on telemetry) Hospitalist ROS - Review of Systems Cardiovascular: denies: chest pain, palpitations, orthopnea, paroxysmal noc. dyspnea, edema, light headedness, other Gastrointestinal: denies: nausea, vomiting, abdominal pain, diarrhea, constipation, melena, hematochezia, other - Medication Medications: Active Medications Generic Name Dose Route Start Last Admin Trade Name Freq PRN Reason Stop Dose Admin Acetaminophen/Codeine Phosphate 1 tab 04/25/20 22:30 04/26/20 20:54 Acetaminophen/Codeine 30-300mg Tablet PO 1 tab Q4H PRN Administration Mild Pain (1-3) Acetaminophen/Codeine Phosphate 2 tab 04/25/20 22:30 04/30/20 21:31 Acetaminophen/Codeine 30-300mg Tablet PO 2 tab Q4H PRN Administration Moderate Pain (4-6) Aspirin 81 mg 04/29/20 09:00 04/30/20 08:00 Aspirin 81 Mg Enteric Coated Tablet PO 81 mg DAILY DARVIN Administration Atorvastatin Calcium 40 mg 04/25/20 21:00 04/30/20 21:31 Atorvastatin Calcium 40 Mg Tab PO 40 mg HS DARVIN Administration Carvedilol 3.125 mg 04/26/20 17:00 04/30/20 17:30 Carvedilol 3.125 Mg Tab PO 3.125 mg BID-WM DARVIN Administration Clopidogrel Bisulfate 75 mg 04/28/20 09:00 04/30/20 08:00 Clopidogrel Bisulfate 75 Mg Tab PO 75 mg DAILY DARVIN Administration Famotidine 20 mg 04/27/20 09:00 04/30/20 21:31 Famotidine 20 Mg Tab PO 20 mg BID DARVIN Administration Nicotine 14 mg 04/26/20 11:30 04/29/20 10:17 Nicotine 14 Mg Patch TD 14 mg Q24HR DARVIN Administration Ondansetron HCl 4 mg 04/25/20 20:40 04/26/20 04:17 Ondansetron Pf 4 Mg/2 Ml Vial IVP 4 mg Q6H PRN Administration Nausea/Vomiting Phosphorus 250 mg 04/30/20 17:00 04/30/20 17:28 K-Phos Neutral 250 Mg Tab PO 250 mg TID-WM DARVIN Administration Sacubitril/Valsartan 1 tab 04/28/20 21:00 04/30/20 21:31 Sacubitril 24mg/Valsartan 26mg Tab PO 1 tab BID DARVIN Administration Sodium Chloride 10 ml 04/26/20 09:00 04/30/20 21:31 Flush - Normal Saline 10 Ml Syringe IVF 10 ml Q12HR DARVIN Administration - Exam General Appearance: NAD Neck: supple Heart: RRR, no gallops Respiratory: no wheezes, no ronchi Gastrointestinal: non-tender, normal bowel sounds Extremities: no cyanosis, no edema Neurological: no new deficit Hosp A/P - Plan DVT proph w/SCDs S/p posterior STEMI with V. fib arrest Hypertension Electrolyte abnormality Cardiomyopathy with ejection fraction 25 to 30%repeat echo EF 35 to 40% Tobacco dependence counseled Plan: Continue aspirin, Plavix, carvedilol with statins. Lifestyle modification emphasized. Lovenox discontinued per cardiology. Replace phosphorus. Await LifeVest. Patient is stable for discharge
[2020-05-01] MEDS: Acetaminophen/Codeine 30-300mg Tablet PO PRN ×3 (01:39→09:37)
[2020-05-01 05:07] LABS: ALT (SGPT) 61 U/L (8-55); AST (SGOT) 33 U/L (5-34); Albumin 3.7 g/dL (3.5-5.0); Alkaline Phosphatase 80 U/L (40-110); Anion Gap 13 mmol/L (10-20); BUN (Urea Nitrogen) 6 mg/dL (8.9-20.6); Bilirubin, Total 0.5 mg/dL (0.2-1.2); Calc. Creatinine Clearance 150 mL/min (70-130); Calcium 8.8 mg/dL (7.8-10.44); Carbon Dioxide 26 mmol/L (22-29); Chloride 106 mmol/L (98-107); Globulin 3.2 g/dL (2.4-3.5); Glucose 100 mg/dL (70-105); Potassium 3.8 mmol/L (3.5-5.1); Protein, Total 6.9 g/dL (6.0-8.3); Sodium 141 mmol/L (136-145)
[2020-05-01 06:09] LABS: Band 2 % (5-11); Eosinophils 9 % (0-10); Lymphocytes 16 % (21-51); MDiff Complete? YES; Mean Corpuscular HGB CONC 34.1 g/dL (32.0-36.0); Mean Corpuscular Hemoglobin 32.3 pg (27.0-31.0); Mean Corpuscular Volume 94.8 fL (78.0-98.0); Mean Platelet Volume 7.8 fL (7.4-10.4); Monocytes 9 % (0-10); Neutrophil 64 % (42-75); Platelet Count 323 thou/uL (130-400); RBC Distribution Width 11.5 % (11.5-14.5); Red Blood Cell (RBC) Count 4.96 mill/uL (4.70-6.10); White Blood Cell (WBC) Count 11.3 thou/uL (4.8-10.8)
[2020-05-01 08:03] VITALS: BP 136/85; TEMP 97.6
[2020-05-01] MEDS: Famotidine 20 MG TAB PO SCH (08:28)
[2020-05-01] MEDS: Clopidogrel Bisulfate 75 MG TAB PO SCH (08:28)
[2020-05-01] MEDS: K-Phos Neutral 250 MG TAB PO SCH (08:28)
[2020-05-01] MEDS: Carvedilol 3.125 MG TAB PO SCH (08:29)
[2020-05-01] MEDS: Aspirin 81 mg Enteric Coated Tablet PO SCH (08:29)
--- NOTE | 2020-05-01 08:42 | PDOC.CPN ---
- Subjective Date: 05/01/20 Time: 08:00 Interval history: Patient sitting up in bed eating breakfast & doing well, he did have 28 beats of PAT last night at 8:30 p.m., patient was asymptomatic. He denies any chest pain of shortness of breath over night. He states that he slept well last night. He was just fitted for his life vest this morning, he is wearing it with no problems now. - Review of Systems General: denies: fever/chills, weight/appetite/sleep changes, night sweats, fatigue Respiratory: denies: cough, congestion, shortness of breath, exercise intolerance Cardiovascular: denies: chest pain, palpitation, edema, paroxysmal nocturnal dyspnea, orthopnea Gastrointestinal: denies: nausea, vomiting, diarrhea, constipation, abd pain, GI bleeding Musculoskeletal: denies: pain, tenderness, stiffness, swelling, arthritis/arthralgias Neurological: denies: numbness, syncope, seizure, weakness - Objective Allergies/Adverse Reactions: Allergies Allergy/AdvReac Type Severity Reaction Status Date / Time shellfish derived Allergy Verified 08/01/19 12:26 Visit Medications: Current Medications Acetaminophen (Acetaminophen 650 Mg Suppository) 650 mg [place] Q6H PRN PRN Reason: Fever > 101 or Mild Pain Acetaminophen/Codeine Phosphate (Acetaminophen/Codeine 30-300mg Tablet) 1 tab PO Q4H PRN PRN Reason: Mild Pain (1-3) Last Admin: 04/26/20 20:54 Dose: 1 tab Documented by: Acetaminophen/Codeine Phosphate (Acetaminophen/Codeine 30-300mg Tablet) 2 tab PO Q4H PRN PRN Reason: Moderate Pain (4-6) Last Admin: 05/01/20 05:35 Dose: 2 tab Documented by: Aspirin (Aspirin 81 Mg Enteric Coated Tablet) 81 mg PO DAILY [facility] Last Admin: 05/01/20 08:29 Dose: 81 mg Documented by: Atorvastatin Calcium (Atorvastatin Calcium 40 Mg Tab) 40 mg PO [facility] Last Admin: 04/30/20 21:31 Dose: 40 mg Documented by: Carvedilol (Carvedilol 3.125 Mg Tab) 3.125 mg PO BID-[facility] Last Admin: 05/01/20 08:29 Dose: 3.125 mg Documented by: Clopidogrel Bisulfate (Clopidogrel Bisulfate 75 Mg Tab) 75 mg PO DAILY [facility] Last Admin: 05/01/20 08:28 Dose: 75 mg Documented by: Famotidine (Famotidine 20 Mg Tab) 20 mg PO BID [facility] Last Admin: 05/01/20 08:28 Dose: 20 mg Documented by: Miscellaneous Medication (Electrolyte Replacement Protocol 1 Each) 1 each FS ASDIR [facility] Nicotine (Nicotine 14 Mg Patch) 14 mg TD Q24HR [facility] Last Admin: 04/29/20 10:17 Dose: 14 mg Documented by: Nitroglycerin (Nitroglycerin 0.4 Mg Tab (25 Tab Bottle)) 0.4 mg SL Q5MIN PRN PRN Reason: Chest Pain Ondansetron HCl (Ondansetron Pf 4 Mg/2 Ml Vial) 4 mg IVP Q6H PRN PRN Reason: Nausea/Vomiting Last Admin: 04/26/20 04:17 Dose: 4 mg Documented by: Phosphorus (K-Phos Neutral 250 Mg Tab) 250 mg PO TID-WM [facility] Last Admin: 05/01/20 08:28 Dose: 250 mg Documented by: Sacubitril/Valsartan (Sacubitril 24mg/Valsartan 26mg Tab) 1 tab PO BID [facility] Last Admin: 05/01/20 08:28 Dose: 1 tab Documented by: Sodium Chloride (Sodium Chloride 0.9% 250 Ml Bag) 200 ml IVPB ONE PRN PRN Reason: BOLUS IF SBP <90 Stop: 05/05/20 22:31 Sodium Chloride (Flush - Normal Saline 10 Ml Syringe) 10 ml IVF PRN PRN PRN Reason: Saline Flush Sodium Chloride (Flush - Normal Saline 10 Ml Syringe) 10 ml IVF Q12HR [facility] Last Admin: 05/01/20 08:29 Dose: 10 ml Documented by: Vital Signs & Weight: Vital Signs Temp Pulse Resp BP BP Pulse Ox 05/01/20 08:00 97.6 F 69 16 136/85 99 05/01/20 04:00 98.7 F 68 18 120/74 97 04/30/20 21:24 98.4 F 77 18 130/82 97 Weight 202 lb - Quality Measures Condition: Myocardial Infarction CV meds: Beta Karla: Yes, JOY/ARB: Yes, Statin: Yes, ASA: Yes, Plavix/Effient/Brilinta: Yes - Physical Exam General: alert & oriented x3, appears well, no apparent distress HEENT: mucus membranes moist Neck: supple neck, midline trachea, no JVD/HJR, no masses, no bruit Cardiac: regular rate and rhythm, no murmur, regular rate Lungs: clear to auscultation, normal breath sounds, no wheeze, rales, rhonchi Neuro: grossly intact, motor function intact, sensory function intact Abdomen: active bowel sounds, soft, non-tender Extremities: no cyanosis, no clubbing, no edema, 2+ Posterior Tibial, 2+ Dorsalis Pedus Skin: clear Musculoskeletal: normal range of motion, no pain, no fluid collection - Labs Result Diagrams: 05/01/20 04:17 05/01/20 04:17 Troponin/CKMB CK-MB (CK-2) 2.5 ng/mL (0-6.6) 04/25/20 14:52 Troponin I 90.793 ng/mL (< 0.028) H* 04/27/20 04:50 - EKG Interpretation EKG Method: Telemetry EKG: sinus rhythm (28 beats of PAT noted on telemetry monitoring last night, patient was asymptomatic.) - Assessment/Plan Assessment/Plan: 1. s/p posterior STEMI with V-fib. arrest. Diffuse distal disease. Small vessels. Occluded OM 1, Occluded non-dominant RCA proximally after the take off of an RV branch. No intervention possible, vessels too small and diffuse disease. patient has been started on Entresto, also on Aspirin, Lipitor, Coreg, & Plavix 2. CMY, likely ischemic. EF 25-30%. Repeat echo EF 35-40%. Inf-posterior lateral akinesis. Patient fitted for Life Vest this morning, tolerating well. 3. HTN: BP is stable on additional meds, tolerating meds. 4. Hypokalemia: replace. Patient wearing LifeVest, he is stable for discharge from a cardiology stand point today. Please follow-up with Cardiology in 2-4 weeks. No work until cleared by Cardiology, will discuss at follow-up appointment
--- NOTE | 2020-05-01 13:23 | PDOC.DS.DS ---
Provider - Provider Date of Admission: 04/25/20 18:28 Date of Discharge: 05/01/20 Admitting Provider: Sampson Junior MD Consultations: Cardiology Primary Care Physician: NO PCP PROVIDER Course - Hospital Course Hospital Course: Patient is a 44-year-old male with hypertension presented to the emergency room via EMS for unresponsiveness while he was driving. EMS noted that patient did not have a pulse and CPR was initiated. He was found to have ventricular fibrillation for which she was shocked twice. He also required CPR. Patient was then intubated and was brought to the emergency room. His EKG was consistent with ST elevation GA. Cardiac catheterization showed ejection fraction of 25 to 30% with diffuse coronary artery disease. Medical therapy was recommended. He was monitored in the CCU. His echocardiogram showed ejection fraction of 35 to 40% with inferior posterior lateral akinesis with mild mitral regurgitation. After extubation he was transferred to telemetry unit. He was evaluated by electrophysiology as well. LifeVest has been arranged. He was advised to follow-up with cardiology and electrophysiology as scheduled. Repeat echo in 40 days. Tobacco cessation was emphasized. Final diagnosis: S/p posterior STEMI with V. fib arrest requiring CPR/mechanical ventilation Acute hypoxic respiratory failure due to above requiring mechanical ventilation Hypertension Abnormal LFTs Electrolyte abnormality Cardiomyopathy with ejection fraction 25 to 30%repeat echo EF 35 to 40% Tobacco dependence-counseled - Labs Lab Results: 05/01/20 04:17 05/01/20 04:17 Abnormal Lab Results - Last 48 hrs 04/30/20 04:08: WBC 12.8 H, MCH 31.9 H, Neutrophils % (Manual) 80 H, Lymphocytes % (Manual) 10 L 04/30/20 04:08: Potassium 3.4 L, BUN 6 L, Albumin 3.4 L, Albumin/Globulin Ratio 1.1 L 04/30/20 04:08: Phosphorus 2.1 L 05/01/20 04:17: WBC 11.3 H, MCH 32.3 H, Band Neuts % (Manual) 2 L, Lymphocytes % (Manual) 16 L 05/01/20 04:17: BUN 6 L, ALT 61 H Laboratory Tests 04/25/20 04/25/20 04/26/20 14:52 14:52 21:05 Potassium 2.7 L* AST 96 H ALT 161 H Troponin I 0.098 H 126.229 H* - Physical Exam Vitals: Vital Signs (12 hours) Temp Pulse Resp BP BP Pulse Ox 05/01/20 08:00 97.6 F 69 16 136/85 99 05/01/20 04:00 98.7 F 68 18 120/74 97 Weight Weight 202 lb Most Recent Monitor Data Heart Rate from ECG 75 NIBP 129/70 NIBP BP-Mean 89 Respiration from ECG 17 SpO2 95 Physical Exam: The patient was seen and examined on the day of discharge. Plan - Discharge Medications Prescriptions: Aspirin [Aspirin EC] 81 mg PO DAILY #30 tablet. Carvedilol [Coreg] 3.125 mg PO BID #60 tab Sacubitril/Valsartan [Entresto 24 mg-26 mg Tablet] 1 each PO BID #60 tablet Atorvastatin Calcium [Lipitor] 40 mg PO HS #30 tab Clopidogrel Bisulfate [Plavix] 75 mg PO DAILY #30 tab Home Medications: Medication Instructions Recorded Confirmed Type Aspirin [Aspirin EC] 81 mg PO DAILY #30 tablet. 04/30/20 Rx Atorvastatin Calcium [Lipitor] 40 mg PO HS #30 tab 04/30/20 Rx Carvedilol [Coreg] 3.125 mg PO BID #60 tab 04/30/20 Rx Clopidogrel Bisulfate [Plavix] 75 mg PO DAILY #30 tab 04/30/20 Rx Sacubitril/Valsartan [Entresto 24 1 each PO BID #60 tablet 04/30/20 Rx mg-26 mg Tablet] Allergies: shellfish derived Allergy (Verified 08/01/19 12:26) - Discharge Instructions Discharge Instructions:: BMP after 1 week - PCP to arrange/follow This to be done at [facility] - Follow up Plan Referrals: [facility] [Outside] - 05/05/20 1:15 pm [facility] [Outside] - 05/05/20 3:30 pm ([facility] will CALL YOU TOMORROW at 10:30.. to update your info. Make sure you have a BMP done in 1 week) Sampson Junior MD [Active] - (Please call to set up your follow up appt per Dr Junior instructions) Steven Whitlock MD [Aeronautical Inspector] - ([phone] 6 weeks (after repeat echocardiogram with cardiology)) Disposition: HOME Quality - Care Measures CORE MEASURES:: AMI - Stroke/TIA Did you prescribe antithrombotic therapy?: Yes Did you prescribe anticoagulant for A Fib/Flutter?: No Specify reason for no DC anticoagulant: Treatment not indicated Did you prescribe a statin medication?: Yes
--- NOTE | 2020-05-02 10:58 | EKG ---
Test Reason : #3 RIGHT SIDE Blood Pressure : / mmHG Vent. Rate : 133 BPM Atrial Rate : 133 BPM P-R Int : 138 ms QRS Dur : 102 ms QT Int : 276 ms P-R-T Axes : 067 041 065 degrees QTc Int : 410 ms Sinus tachycardia Possible Left atrial enlargement Low voltage QRS Inferior infarct , possibly acute Possible Anterolateral infarct , age undetermined Marked ST abnormality, possible septal subendocardial injury * ACUTE SD * Consider right ventricular involvement in acute inferior infarct Abnormal ECG Confirmed by LISA ANGEL DO ([id number]), clinical editor SCARLETT LAURA ([id number]) on 05/02/2020 10:57:55 AM Referred By: Confirmed By:LISA ANGEL DO
--- NOTE | 2020-05-02 10:59 | EKG ---
Test Reason : #4 RIGHT SIDE Blood Pressure : / mmHG Vent. Rate : 091 BPM Atrial Rate : 091 BPM P-R Int : 146 ms QRS Dur : 106 ms QT Int : 326 ms P-R-T Axes : 066 032 067 degrees QTc Int : 400 ms Normal sinus rhythm Possible Left atrial enlargement Low voltage QRS Possible Anterolateral infarct , age undetermined Inferior injury pattern * ACUTE OK * Consider right ventricular involvement in acute inferior infarct Abnormal ECG Confirmed by LISA ANGEL DO ([id number]), online editor SCARLETT LAURA ([id number]) on 05/02/2020 10:59:26 AM Referred By: Confirmed By:LISA ANGEL DO
--- NOTE | 2020-05-04 07:44 | PQF ---
CLINICAL DOCUMENTATION CLARIFICATION FORM: Dear : Aldo Vargas Date / Time: 05/04/2020 07:43 Please exercise your independent, professional judgment in responding to the clarification form. Clinical indicators are provided on the bottom of this form for your review Based on your clinical judgment, can you please specify etiology of patient s cardiac arrest? Please check appropriate box(es) to determine sequence of events: [ x ] Acute [place] [ ] Hypokalemia [ ] NSVT [ ] Other diagnosis ,please specify [ ] Unable to determine Physician Signature: Date/Time: For continuity of documentation, please document condition throughout progress notes and discharge summary. Thank You. To be completed by CDI/Coding staff for physician review: Present Clinical Indicators - Signs / Symptoms / Labs Results and Location in Medical Record [x] Cardiac arrest ED Notes 04/25 [x] Echocardiogram: Inferior infarct, possibly acute Echocardiogram 05/02 [x] unresponsive ED Notes 04/25 [x] EKG:ST depression ED Notes 04/25 [x] Most likely ventricular fibrillation arrest.it appears that most likely he has suffered an ST segment elevation [place] HP 04/25 [x] cardiac arrest most likely secondary to ischemic CAD Consult 04/25 [x] Vfib arrest possibly prompted by initial [place] or hypokalemia PN 04/27 Present Risk Factors Results and Location in Medical Record [x] HTN HP 04/25 [x] Smoker HP 04/25 [x] Acute [place] HP 04/25 [x] Ventricular fibrillation HP 04/25 [x] Hypokalemia HP 04/25 [x] CMP PN 04/26 Present Treatments Results and Location in Medical Record [x] [facility] technology lab teacher 04/25 [x] Intubation with ventilation ED Notes 04/25 [x] Cardiology Consult Consult 04/25 [x] Heparin 1000ml IV MAR 04/25 [x] Dopamine 400mg IV JUL 24 CDS/Flattening Machine Operator Signature: Nash Vonda Leyva Phone #: [phone] Date/Time: 05/04/2020 This is a permanent part of the Medical Record [facility]
== END 2020-05-01 09:40 | disposition home or self-care (01) | DRG 280 ==
LOC: ERS 14:49 → CCL 17:33 → CCU 18:28 → 2NO 04-28 18:56
PROVIDERS: ADMIT Internal Medicine Cardiovascular Disease; ATTEND Internal Medicine
PROC: 4A023N7 Measurement of Cardiac Sampling and Pressure, Left Heart, Percutaneous Approach (ICD-10-PCS; principal; 2020-04-25)
PROC: B2111ZZ Fluoroscopy of Multiple Coronary Arteries using Low Osmolar Contrast (ICD-10-PCS; 2020-04-25)
PROC: 3E033XZ Introduction of Vasopressor into Peripheral Vein, Percutaneous Approach (ICD-10-PCS; 2020-04-25)
PROC: 0BH17EZ Insertion of Endotracheal Airway into Trachea, Via Natural or Artificial Opening (ICD-10-PCS; 2020-04-25)
PROC: 5A1935Z Respiratory Ventilation, Less than 24 Consecutive Hours (ICD-10-PCS; 2020-04-25)
DX: I21.11 ST elevation (STEMI) myocardial infarction involving right coronary artery (principal); J96.01 Acute respiratory failure with hypoxia; R57.0 Cardiogenic shock; I46.2 Cardiac arrest due to underlying cardiac condition; I47.2 Ventricular tachycardia; E87.6 Hypokalemia; I10 Essential (primary) hypertension; F17.210 Nicotine dependence, cigarettes, uncomplicated; Z20.828 Contact with and (suspected) exposure to other viral communicable diseases; I25.5 Ischemic cardiomyopathy; I25.10 Atherosclerotic heart disease of native coronary artery without angina pectoris; I34.0 Nonrheumatic mitral (valve) insufficiency; Z91.013 Allergy to seafood
CPT/HCPCS: 31500; 36415; 36600; 51702; 70450; 71045; 71260; 72125; 72170; 74177; 80053; 80061; 80306; 80307; 81003; 81015; 82553; 82805; 83605; 83690; 83735; 84100; 84484; 85007; 85025; 85027; 85347; 85610; 85730; 86850; 86900; 86901; 92950; 93005; 93306; 93458; 93798; 94002; 96361; 96365; 96366; 96368; 96375; J1265; J1644; J1650; J2250; J2405; J2704; J2760; J3010; J3475; J3480; J3490; Q9967; S0028; U0002

== ENCOUNTER 2020-08-05 09:46 | Outpatient (CLI) | payer OTHER ==
[2020-08-05 11:39] LABS: Hemoglobin 16.2 g/dL (13.5-17.5); Mean Corpuscular HGB CONC 33.5 g/dL (32.0-36.0); Mean Corpuscular Hemoglobin 30.5 pg (27.0-33.0); Mean Corpuscular Volume 90.8 fl (81.2-95.1); Mean Platelet Volume 9.8 fl (7.4-10.4); Platelet Count 342 10x3/uL (150-450); RBC Distribution Width 12.6 % (11.5-14.5); Red Blood Cell (RBC) Count 5.32 10x6/uL (4.32-5.72); White Blood Cell (WBC) Count 7.4 10x3/uL (3.5-10.5)
[2020-08-05 11:56] LABS: Prothrombin Time 10.9 sec (9.5-12.1)
[2020-08-05 12:00] LABS: Anion Gap 14 mmol/L (10-20); BUN (Urea Nitrogen) 10 mg/dL (8.9-20.6); Calc. Creatinine Clearance 0 mL/min (70-130); Calcium 9.5 mg/dL (7.8-10.44); Carbon Dioxide 25 mmol/L (22-29); Chloride 105 mmol/L (98-107); Glucose 94 mg/dL (70-105); Potassium 4.5 mmol/L (3.5-5.1); Sodium 139 mmol/L (136-145)
[2020-08-05 19:32] LABS: SARS-CoV-2 PCR by NAA Not Detected (NotDetected)
== END 2020-08-05 09:47 | disposition home or self-care (01) ==
LOC: LABBT 09:46
PROVIDERS: ATTEND Internal Medicine Cardiovascular Disease
DX: Z01.818 Encounter for other preprocedural examination (principal); Z20.822 Contact with and (suspected) exposure to COVID-19; I50.9 Heart failure, unspecified
CPT/HCPCS: 80048; 85027; 85610; 85730; 87635; 93005; 93010; U0003; U0005

== ENCOUNTER 2020-08-10 07:53 | Day surgery (SDC) | payer OTHER ==
[2020-08-06 11:07] VITALS: BMI 26.4
[2020-08-10] MEDS ORDERED: diphenhydrAMINE 25 MG CAP PO SCH (08:45)
[2020-08-10] MEDS ORDERED: Fentanyl 100 MCG/2 ML VIAL ONE (09:07)
[2020-08-10] MEDS ORDERED: Midazolam HCl 2 mg/2 ml Vial ONE (09:18)
[2020-08-10] MEDS ORDERED: Propofol 1,000 MG/100 ML VIAL IV ONE (09:24)
[2020-08-10] MEDS ORDERED: Heparin 10,000 UNITS/ 10 ML VIAL ONE (09:31)
[2020-08-10] MEDS ORDERED: Lidocaine 1% (PF) 30 ML VIAL ONE (09:35)
[2020-08-10] MEDS ORDERED: PROPOFOL 200 MG/20 ML VIAL ONE (10:00)
[2020-08-10] MEDS ORDERED: Lidocaine 1% PF 5 ML VIAL ONE (10:00)
[2020-08-10] MEDS ORDERED: Gentamicin 80 MG/2 ML VIAL ONE (10:47)
[2020-08-10] MEDS ORDERED: CEFAZOLIN 1 GM VIAL ONE (10:47)
[2020-08-10] MEDS ORDERED: Acetaminophen/Codeine 30-300mg Tablet ONE (14:38)
[2020-08-10] MEDS ORDERED: HYDROcodone/Acetaminophen 5/325 mg Tablet PO PRN ×2 (17:00)
[2020-08-10] MEDS ORDERED: Acetaminophen/Codeine 30-300mg Tablet PO PRN ×2 (17:00)
== END 2020-08-10 16:22 | disposition home or self-care (01) ==
LOC: CCL 07:53
PROVIDERS: ATTEND Internal Medicine Cardiovascular Disease
PROC: 02H63KZ Insertion of Defibrillator Lead into Right Atrium, Percutaneous Approach (ICD-10-PCS; principal; 2020-08-10)
PROC: 0JH609Z Insertion of Cardiac Resynchronization Defibrillator Pulse Generator into Chest Subcutaneous Tissue and Fascia, Open Approach (ICD-10-PCS; principal; 2020-08-10)
PROC: 4A0234Z Measurement of Cardiac Electrical Activity, Percutaneous Approach (ICD-10-PCS; principal; 2020-08-10)
PROC: 4A023FZ Measurement of Cardiac Rhythm, Percutaneous Approach (ICD-10-PCS; principal; 2020-08-10)
PROC: 02HL3KZ Insertion of Defibrillator Lead into Left Ventricle, Percutaneous Approach (ICD-10-PCS; principal; 2020-08-10)
DX: I49.01 Ventricular fibrillation (principal); R00.1 Bradycardia, unspecified; I11.0 Hypertensive heart disease with heart failure; I50.22 Chronic systolic (congestive) heart failure; I25.5 Ischemic cardiomyopathy; I25.2 Old myocardial infarction; I25.10 Atherosclerotic heart disease of native coronary artery without angina pectoris; E78.5 Hyperlipidemia, unspecified; K21.9 Gastro-esophageal reflux disease without esophagitis; Z87.891 Personal history of nicotine dependence; Z79.02 Long term (current) use of antithrombotics/antiplatelets; Z79.82 Long term (current) use of aspirin; Z79.899 Other long term (current) drug therapy; Z91.013 Allergy to seafood; Z91.041 Radiographic dye allergy status
CPT/HCPCS: 33249; 71045; 76942; 92960; 93005; 93010; 93613; 93621; C1721; C1730; C1777; C1898; J0690; J1580; J1644; J2001; J2250; J2704; J3010; Q0163

== ENCOUNTER 2025-04-18 23:41 | Emergency (ER) | payer BC ==
[2025-04-19] MEDS ORDERED: Ondansetron PF 4 MG/2 ML Vial ONE (00:09)
[2025-04-19 00:34] LABS: #Basophils 0.05 10x3/uL (0.0-0.2); #Eosinophils 0.04 10x3/uL (0.0-0.7); #Monocytes 0.72 10x3/uL (0.11-0.59); #Neutrophils 13.48 10x3/uL (1.40-6.50); %Basophils 0.3 % (0.0-1.0); %Eosinophils 0.3 % (0.0-10.0); %Lymphocytes 7.2 % (21.0-51.0); %Monocytes 4.7 % (0.0-10.0); %Neutrophils 87.2 % (42.0-75.0); Hematocrit 41.1 % (42.0-52.0); Hemoglobin 14.0 g/dL (14.0-18.0); Mean Corpuscular Hemoglobin 31.5 pg (27.0-31.0); Mean Corpuscular Volume 92.6 fL (78.0-98.0); Platelet Count 246 10x3/uL (130-400); Red Blood Cell (RBC) Count 4.44 mill/uL (4.70-6.10); White Blood Cell (WBC) Count 15.46 10x3/uL (4.8-10.8)
[2025-04-19 00:48] LABS: INR-International Normal Ratio 1.1; PTT 28.0 sec (22.9-36.1); Prothrombin Time 14.0 sec (12.0-14.7)
[2025-04-19 00:51] LABS: ALT (SGPT) 27 U/L (Less than 45); AST (SGOT) 24 U/L (11-34); Albumin 4.5 g/dL (3.1-4.5); Alkaline Phosphatase 68 U/L (40-110); Anion Gap 12 mmol/L (10-20); BUN (Urea Nitrogen) 9 mg/dL (8.9-20.6); Bilirubin, Total 0.8 mg/dL (0.3-1.2); Calc. Creatinine Clearance 0 mL/min (70-130); Calcium 9.2 mg/dL (7.8-10.44); Carbon Dioxide 25 mmol/L (22-29); Chloride 105 mmol/L (98-107); Globulin 2.4 g/dL (2.4-3.5); Glucose 128 mg/dL (70-105); Potassium 3.4 mmol/L (3.5-5.1); Sodium 139 mmol/L (136-145)
== END 2025-04-19 01:53 | disposition home or self-care (01) ==
LOC: ERS 23:41
DX: K08.89 Other specified disorders of teeth and supporting structures (principal); R04.0 Epistaxis; I25.2 Old myocardial infarction; Z55.6 Problems related to health literacy
CPT/HCPCS: 80053; 85025; 85610; 85730; 96374; 96375; J2270; J2405